=== PATIENT | male | born 1955 | race Caucasian/White ===

== ENCOUNTER 2018-12-19 10:43 | Outpatient (CLI) | payer BC, SELFPAY ==
[2018-12-19 11:06] LABS: Abs Immature Grans 0.02 k/cumm (0.0-0.09); Absolute Basophil Count 0.02 k/cumm (0.0-0.2); Absolute Eosinophil Count 0.04 k/cumm (0.0-0.7); Absolute Monocyte Count 0.74 k/cumm (0.11-0.7); Absolute Neutrophil Count 3.81 k/cumm (1.2-6.7); Basophils % 0.3; Eosinophils % 0.7; HCT 42.9 % (40.0-50.0); HGB 14.2 g/dL (13.5-17.5); Immature Grans % 0.3; Lymphocytes % 19.2; Mean Corp. HGB Concentration 33.1 g/dL (32.0-36.0); Mean Corpuscular Hemoglobin 29.3 pg (27.0-33.0); Mean Corpuscular Volume 88.5 fL (80-95); Mean Platelet Volume 9.1 fL (8.0-11.0); Monocytes % 12.9; Neutrophils % 66.6; Platelet Count 239 x1000/uL (130-400); RBC 4.85 m/cumm (4.50-6.00); RBC Distribution Width 13.8 % (11.8-14.1); White Blood Cell Count 5.73 k/cumm (4.4-10.8)
[2018-12-19 11:26] LABS: ALT 32 U/L (12-78); AST 16 U/L (15-37); Albumin 3.9 g/dL (3.4-5.0); Alkaline Phosphatase 94 U/L (46-116); Anion Gap 9.5 mmol/L (3-11); BUN 25 mg/dL (7-18); Bilirubin, Total 0.4 mg/dL (0.2-1.0); CO2 27.5 mmol/L (21.0-32.0); CREATININE 1.08 mg/dL (0.70-1.30); Calcium 9.7 mg/dL (8.5-10.1); Chloride 103 mmol/L (98-107); Glucose 104 mg/dL (70-100); Potassium 4.1 mmol/L (3.5-5.1); Sodium 140 mmol/L (136-145); Total Protein 7.7 g/dL (6.4-8.2)
[2018-12-20 11:30] LABS: IgA 141 mg/dL (85-499); IgG 1128 mg/dL (610-1616); IgM 118 mg/dL (35-242); Kappa Free Light Chain 53.48 mg/dl (0.33-1.94); Lambda Free Light Chain 1.21 mg/dl (0.57-2.63)
[2018-12-20 13:42] LABS: Albumin 58.3 % (55.8-66.1); Total Protein 6.9 g/dl (6.3-8.2)
== END 2018-12-19 11:03 ==
PROVIDERS: PCP Internal Medicine; Visit Provider Internal Medicine Hematology & Oncology
DX: C90.30 Solitary plasmacytoma not having achieved remission (principal)
CPT/HCPCS: 36415; 80053; 82784; 83883; 84165; 85025

== ENCOUNTER 2019-03-20 09:15 | Outpatient (CLI) | payer BC, SELFPAY ==
[2019-03-20 09:59] LABS: Abs Immature Grans 0.03 k/cumm (0.0-0.09); Absolute Basophil Count 0.02 k/cumm (0.0-0.2); Absolute Eosinophil Count 0.03 k/cumm (0.0-0.7); Absolute Lymphocyte Count 1.09 k/cumm (1.2-3.4); Absolute Monocyte Count 0.91 k/cumm (0.11-0.7); Absolute Neutrophil Count 4.42 k/cumm (1.2-6.7); Basophils % 0.3; Eosinophils % 0.5; HCT 41.1 % (40.0-50.0); HGB 13.6 g/dL (13.5-17.5); Immature Grans % 0.5; Lymphocytes % 16.8; Mean Corp. HGB Concentration 33.1 g/dL (32.0-36.0); Mean Corpuscular Hemoglobin 29.6 pg (27.0-33.0); Mean Corpuscular Volume 89.5 fL (80-95); Mean Platelet Volume 8.8 fL (8.0-11.0); Neutrophils % 67.9; Platelet Count 288 x1000/uL (130-400); RBC 4.59 m/cumm (4.50-6.00); RBC Distribution Width 13.9 % (11.8-14.1)
[2019-03-20 10:11] LABS: ALT 30 U/L (16-63); AST 17 U/L (15-37); Alkaline Phosphatase 141 U/L (46-116); Anion Gap 8.7 mmol/L (3-11); BUN 25 mg/dL (7-18); Bilirubin, Total 0.5 mg/dL (0.2-1.0); CO2 30.3 mmol/L (21.0-32.0); CREATININE 1.34 mg/dL (0.70-1.30); Calcium 10.2 mg/dL (8.5-10.1); Chloride 104 mmol/L (98-107); Glucose 112 mg/dL (70-100); Potassium 4.1 mmol/L (3.5-5.1); Sodium 143 mmol/L (136-145)
[2019-03-21 10:17] LABS: IgA 134 mg/dL (85-499); IgG 1074 mg/dL (610-1616); IgM 97 mg/dL (35-242); Kappa Free Light Chain 192.01 mg/dl (0.33-1.94); Lambda Free Light Chain 1.25 mg/dl (0.57-2.63)
[2019-03-21 13:42] LABS: Albumin 58.7 % (55.8-66.1); Total Protein 7.4 g/dl (6.3-8.2)
== END 2019-03-20 09:35 ==
PROVIDERS: PCP Internal Medicine; Visit Provider Internal Medicine Hematology & Oncology
DX: C90.30 Solitary plasmacytoma not having achieved remission (principal)
CPT/HCPCS: 36415; 80053; 82784; 83883; 84165; 85025

== ENCOUNTER 2019-04-15 12:15 | Outpatient (CLI) | payer BC, SELFPAY ==
[2019-04-15 12:41] LABS: Abs Immature Grans 0.15 k/cumm (0.0-0.09); Absolute Basophil Count 0.01 k/cumm (0.0-0.2); Absolute Lymphocyte Count 1.31 k/cumm (1.2-3.4); Absolute Monocyte Count 1.81 k/cumm (0.11-0.7); Basophils % 0.1; HCT 39.4 % (40.0-50.0); Immature Grans % 1.3; Lymphocytes % 11.4; Mean Corpuscular Hemoglobin 29.5 pg (27.0-33.0); Mean Corpuscular Volume 89.3 fL (80-95); Mean Platelet Volume 9.1 fL (8.0-11.0); Monocytes % 15.7; Neutrophils % 71.5; Platelet Count 299 x1000/uL (130-400); RBC 4.41 m/cumm (4.50-6.00); RBC Distribution Width 14.1 % (11.8-14.1); White Blood Cell Count 11.53 k/cumm (4.4-10.8)
[2019-04-15 12:46] LABS: Absolute Neutrophil Count 8.24 k/cumm (1.2-6.7)
[2019-04-15 12:54] LABS: ALT 73 U/L (16-63); AST 24 U/L (15-37); Albumin 3.7 g/dL (3.4-5.0); Alkaline Phosphatase 112 U/L (46-116); Anion Gap 10.3 mmol/L (3-11); BUN 29 mg/dL (7-18); Bilirubin, Total 0.4 mg/dL (0.2-1.0); CO2 26.7 mmol/L (21.0-32.0); CREATININE 1.49 mg/dL (0.70-1.30); Calcium 8.3 mg/dL (8.5-10.1); Chloride 106 mmol/L (98-107); Estimated GFR 47.33 (mL/min/1.73m2); Glucose 97 mg/dL (70-100); Potassium 3.7 mmol/L (3.5-5.1); Sodium 143 mmol/L (136-145); Total Protein 7.2 g/dL (6.4-8.2)
[2019-04-15 12:58] LABS: Diff Comment Diff Reviewed; RBC Morphology Normal
[2019-04-16 11:46] LABS: IgA 107 mg/dL (85-499); IgG 953 mg/dL (610-1,616); IgM 78 mg/dL (35-242); Kappa Free Light Chain 136.06 mg/dL (0.33-1.94); Lambda Free Light Chain 0.65 mg/dL (0.57-2.63)
[2019-04-23 09:33] LABS: Albumin 60.3 % (55.8-66.1); Total Protein 6.7 g/dL (6.3-8.2)
[2019-04-23 09:40] LABS: Comment See Comments
== END 2019-04-15 12:35 ==
PROVIDERS: PCP Internal Medicine; Visit Provider Internal Medicine Hematology & Oncology
DX: C90.30 Solitary plasmacytoma not having achieved remission (principal)
CPT/HCPCS: 36415; 80053; 82784; 83883; 84165; 85025

== ENCOUNTER 2019-04-22 12:29 | Outpatient (CLI) | payer BC, SELFPAY ==
[2019-04-22 13:12] LABS: Abs Immature Grans 0.05 k/cumm (0.0-0.09); Absolute Basophil Count 0.01 k/cumm (0.0-0.2); Absolute Lymphocyte Count 0.78 k/cumm (1.2-3.4); Absolute Monocyte Count 0.93 k/cumm (0.11-0.7); Absolute Neutrophil Count 7.27 k/cumm (1.2-6.7); Basophils % 0.1; HCT 38.2 % (40.0-50.0); HGB 12.6 g/dL (13.5-17.5); Immature Grans % 0.6; Lymphocytes % 8.6; Mean Corpuscular Hemoglobin 29.8 pg (27.0-33.0); Mean Corpuscular Volume 90.3 fL (80-95); Mean Platelet Volume 10.4 fL (8.0-11.0); Monocytes % 10.3; Neutrophils % 80.4; RBC 4.23 m/cumm (4.50-6.00); RBC Distribution Width 14.5 % (11.8-14.1); White Blood Cell Count 9.04 k/cumm (4.4-10.8)
[2019-04-22 13:51] LABS: Diff Comment PLT Morph Reviewed; Platelet Count 126 x1000/uL (130-400); RBC Morphology Normal
[2019-04-22 14:25] LABS: ALT 68 U/L (16-63); AST 34 U/L (15-37); Albumin 3.6 g/dL (3.4-5.0); Alkaline Phosphatase 122 U/L (46-116); Anion Gap 8.6 mmol/L (3-11); BUN 22 mg/dL (7-18); Bilirubin, Total 0.4 mg/dL (0.2-1.0); CO2 29.4 mmol/L (21.0-32.0); CREATININE 1.26 mg/dL (0.70-1.30); Calcium 8.8 mg/dL (8.5-10.1); Chloride 103 mmol/L (98-107); Estimated GFR 57.44 (mL/min/1.73m2); Glucose 88 mg/dL (70-100); Potassium 4.5 mmol/L (3.5-5.1); Sodium 141 mmol/L (136-145); Total Protein 6.8 g/dL (6.4-8.2)
[2019-04-23 12:28] LABS: IgA 90 mg/dL (85-499); IgG 767 mg/dL (610-1,616); IgM 62 mg/dL (35-242)
[2019-04-23 13:39] LABS: Kappa Free Light Chain 118.81 mg/dL (0.33-1.94); Lambda Free Light Chain 0.67 mg/dL (0.57-2.63)
[2019-04-23 15:22] LABS: Albumin 57.3 % (55.8-66.1); Total Protein 6.7 g/dL (6.3-8.2)
== END 2019-04-22 12:49 ==
PROVIDERS: PCP Internal Medicine; Visit Provider Internal Medicine Hematology & Oncology
DX: C90.00 Multiple myeloma not having achieved remission (principal); C90.30 Solitary plasmacytoma not having achieved remission
CPT/HCPCS: 36415; 80053; 82784; 83883; 84165; 85025

== ENCOUNTER 2019-05-06 11:42 | Outpatient (CLI) | payer BC, SELFPAY ==
[2019-05-06 12:02] LABS: Abs Immature Grans 0.05 k/cumm (0.0-0.09); Absolute Basophil Count 0.02 k/cumm (0.0-0.2); Absolute Eosinophil Count 0.03 k/cumm (0.0-0.7); Absolute Lymphocyte Count 0.76 k/cumm (1.2-3.4); Absolute Monocyte Count 1.53 k/cumm (0.11-0.7); Absolute Neutrophil Count 4.51 k/cumm (1.2-6.7); Basophils % 0.3; Eosinophils % 0.4; HCT 34.4 % (40.0-50.0); HGB 11.2 g/dL (13.5-17.5); Immature Grans % 0.7; Mean Corp. HGB Concentration 32.6 g/dL (32.0-36.0); Mean Corpuscular Hemoglobin 29.7 pg (27.0-33.0); Mean Corpuscular Volume 91.2 fL (80-95); Mean Platelet Volume 8.1 fL (8.0-11.0); Monocytes % 22.2; Neutrophils % 65.4; RBC 3.77 m/cumm (4.50-6.00); RBC Distribution Width 15.1 % (11.8-14.1)
[2019-05-06 12:13] LABS: Diff Comment Diff Reviewed; Platelet Count 525 x1000/uL (130-400); Polychromasia Present
[2019-05-06 12:16] LABS: ALT 50 U/L (16-63); AST 20 U/L (15-37); Albumin 3.3 g/dL (3.4-5.0); Alkaline Phosphatase 205 U/L (46-116); Anion Gap 8.4 mmol/L (3-11); BUN 18 mg/dL (7-18); Bilirubin, Total 0.4 mg/dL (0.2-1.0); CO2 27.6 mmol/L (21.0-32.0); CREATININE 1.07 mg/dL (0.70-1.30); Calcium 8.8 mg/dL (8.5-10.1); Chloride 103 mmol/L (98-107); Glucose 103 mg/dL (74-106); Potassium 4.3 mmol/L (3.5-5.1); Sodium 139 mmol/L (136-145)
[2019-05-07 10:59] LABS: IgA 98 mg/dL (85-499); IgG 765 mg/dL (610-1,616); IgM 58 mg/dL (35-242); Kappa Free Light Chain 9.81 mg/dL (0.33-1.94); Lambda Free Light Chain 1.25 mg/dL (0.57-2.63)
[2019-05-07 15:51] LABS: Albumin 56.5 % (55.8-66.1); Total Protein 6.4 g/dL (6.3-8.2)
== END 2019-05-06 12:02 ==
PROVIDERS: PCP Internal Medicine; Visit Provider Internal Medicine Hematology & Oncology
DX: C90.30 Solitary plasmacytoma not having achieved remission (principal)
CPT/HCPCS: 36415; 80053; 82784; 83883; 84165; 85025

== ENCOUNTER 2019-05-13 11:50 | Outpatient (CLI) | payer BC, SELFPAY ==
[2019-05-13 12:30] LABS: Abs Immature Grans 0.53 k/cumm (0.0-0.09); HCT 35.2 % (40.0-50.0); HGB 11.6 g/dL (13.5-17.5); Mean Corpuscular Hemoglobin 29.7 pg (27.0-33.0); Mean Corpuscular Volume 90.3 fL (80-95); Mean Platelet Volume 10.9 fL (8.0-11.0); RBC Distribution Width 15.5 % (11.8-14.1)
[2019-05-13 12:42] LABS: ALT 50 U/L (16-63); AST 21 U/L (15-37); Albumin 3.2 g/dL (3.4-5.0); Alkaline Phosphatase 176 U/L (46-116); Anion Gap 6.2 mmol/L (3-11); BUN 17 mg/dL (7-18); Bilirubin, Total 0.4 mg/dL (0.2-1.0); CO2 29.8 mmol/L (21.0-32.0); CREATININE 1.02 mg/dL (0.70-1.30); Calcium 8.9 mg/dL (8.5-10.1); Chloride 102 mmol/L (98-107); Glucose 89 mg/dL (74-106); Potassium 3.7 mmol/L (3.5-5.1); Sodium 138 mmol/L (136-145); Total Protein 6.8 g/dL (6.4-8.2)
[2019-05-13 12:55] LABS: Platelet Count 162 x1000/uL (130-400)
[2019-05-13 12:57] LABS: Absolute Neutrophil Count 7.63 k/cumm (1.2-6.7)
[2019-05-13 12:58] LABS: Absolute Lymphocyte Count 1.27 k/cumm (1.2-3.4); Absolute Monocyte Count 1.06 k/cumm (0.11-0.7); Atypical Lymphocytes % 1
[2019-05-13 12:59] LABS: Absolute Eosinophil Count 0.21 k/cumm (0.0-0.7)
[2019-05-13 13:00] LABS: Diff Comment Manual Differential; RBC Morphology Normal
[2019-05-14 09:56] LABS: IgA 75 mg/dL (85-499); IgG 679 mg/dL (610-1,616); IgM 48 mg/dL (35-242); Kappa Free Light Chain 4.64 mg/dL (0.33-1.94); Lambda Free Light Chain 0.77 mg/dL (0.57-2.63)
[2019-05-14 15:26] LABS: Albumin 56.9 % (55.8-66.1); Total Protein 6.1 g/dL (6.3-8.2)
== END 2019-05-13 12:10 ==
PROVIDERS: PCP Internal Medicine; Visit Provider Internal Medicine Hematology & Oncology
DX: C90.30 Solitary plasmacytoma not having achieved remission (principal)
CPT/HCPCS: 36415; 80053; 82784; 83883; 84165; 85025

== ENCOUNTER 2019-05-23 09:25 | Outpatient (CLI) | payer BC, SELFPAY ==
[2019-05-22 14:13] LABS: HGB 11.1 g/dL (13.5-17.5); Mean Corp. HGB Concentration 32.6 g/dL (32.0-36.0); Mean Corpuscular Hemoglobin 29.5 pg (27.0-33.0); Mean Corpuscular Volume 90.4 fL (80-95); Mean Platelet Volume 11.1 fL (8.0-11.0); RBC 3.76 m/cumm (4.50-6.00); RBC Distribution Width 16.2 % (11.8-14.1); White Blood Cell Count 9.95 k/cumm (4.4-10.8)
[2019-05-22 14:27] LABS: ALT 172 U/L (16-63); AST 67 U/L (15-37); Albumin 3.5 g/dL (3.4-5.0); Alkaline Phosphatase 181 U/L (46-116); Anion Gap 6.9 mmol/L (3-11); BUN 28 mg/dL (7-18); Bilirubin, Total 0.6 mg/dL (0.2-1.0); CO2 27.1 mmol/L (21.0-32.0); CREATININE 0.93 mg/dL (0.70-1.30); Calcium 8.7 mg/dL (8.5-10.1); Chloride 103 mmol/L (98-107); Glucose 89 mg/dL (74-106); Potassium 4.1 mmol/L (3.5-5.1); Sodium 137 mmol/L (136-145); Total Protein 6.7 g/dL (6.4-8.2)
[2019-05-22 14:34] LABS: Absolute Monocyte Count 1.59 k/cumm (0.11-0.7); Absolute Neutrophil Count 7.86 k/cumm (1.2-6.7); Platelet Count 75 x1000/uL (130-400)
[2019-05-22 14:35] LABS: Anisocytosis 1+; Diff Comment Manual Differential; Polychromasia Present
[2019-05-23 11:22] LABS: Kappa Free Light Chain 1.25 mg/dL (0.33-1.94); Lambda Free Light Chain 0.82 mg/dL (0.57-2.63)
[2019-05-23 13:42] LABS: Albumin 63.3 % (55.8-66.1); Total Protein 6.4 g/dL (6.3-8.2)
== END 2019-05-23 09:45 ==
PROVIDERS: PCP Internal Medicine; Visit Provider Internal Medicine Hematology & Oncology
DX: C90.30 Solitary plasmacytoma not having achieved remission (principal)
CPT/HCPCS: 36415; 80053; 83883; 84165; 85025

== ENCOUNTER 2019-05-27 01:28 | Outpatient (CLI) | payer BC, SELFPAY ==
[2019-05-27 11:16] LABS: Abs Immature Grans 0.04 k/cumm (0.0-0.09); Absolute Basophil Count 0.02 k/cumm (0.0-0.2); Absolute Eosinophil Count 0.16 k/cumm (0.0-0.7); Absolute Lymphocyte Count 1.61 k/cumm (1.2-3.4); Absolute Monocyte Count 2.03 k/cumm (0.11-0.7); Absolute Neutrophil Count 3.34 k/cumm (1.2-6.7); Basophils % 0.3; Eosinophils % 2.2; HCT 34.5 % (40.0-50.0); HGB 11.3 g/dL (13.5-17.5); Immature Grans % 0.6; Lymphocytes % 22.4; Mean Corp. HGB Concentration 32.8 g/dL (32.0-36.0); Mean Corpuscular Volume 91.5 fL (80-95); Mean Platelet Volume 8.4 fL (8.0-11.0); Monocytes % 28.2; Neutrophils % 46.3; RBC 3.77 m/cumm (4.50-6.00); RBC Distribution Width 16.4 % (11.8-14.1)
[2019-05-27 11:35] LABS: Diff Comment Diff Reviewed; RBC Morphology Normal
[2019-05-27 11:36] LABS: Platelet Count 286 x1000/uL (130-400)
[2019-05-27 12:14] LABS: ALT 92 U/L (16-63); AST 35 U/L (15-37); Albumin 3.5 g/dL (3.4-5.0); Alkaline Phosphatase 191 U/L (46-116); Anion Gap 6.5 mmol/L (3-11); BUN 27 mg/dL (7-18); Bilirubin, Total 0.6 mg/dL (0.2-1.0); CO2 28.5 mmol/L (21.0-32.0); CREATININE 0.88 mg/dL (0.70-1.30); Calcium 8.8 mg/dL (8.5-10.1); Chloride 103 mmol/L (98-107); Glucose 96 mg/dL (74-106); Potassium 4.2 mmol/L (3.5-5.1); Sodium 138 mmol/L (136-145); Total Protein 6.4 g/dL (6.4-8.2)
[2019-05-28 10:42] LABS: IgA 71 mg/dL (85-499); IgG 717 mg/dL (610-1,616); IgM 87 mg/dL (35-242); Kappa Free Light Chain 2.52 mg/dL (0.33-1.94); Lambda Free Light Chain 1.24 mg/dL (0.57-2.63)
[2019-05-30 14:19] LABS: Albumin 59.7 % (55.8-66.1); Total Protein 6.3 g/dL (6.3-8.2)
== END 2019-05-27 01:48 ==
PROVIDERS: PCP Internal Medicine; Visit Provider Internal Medicine Hematology & Oncology
DX: C90.30 Solitary plasmacytoma not having achieved remission (principal)
CPT/HCPCS: 36415; 80053; 82784; 83883; 84165; 85025

== ENCOUNTER 2019-06-03 10:20 | Outpatient (CLI) | payer BC, SELFPAY ==
[2019-06-03 10:48] LABS: Abs Immature Grans 0.06 k/cumm (0.0-0.09); Absolute Basophil Count 0.01 k/cumm (0.0-0.2); Absolute Eosinophil Count 0.08 k/cumm (0.0-0.7); Absolute Lymphocyte Count 1.09 k/cumm (1.2-3.4); Absolute Monocyte Count 0.74 k/cumm (0.11-0.7); Absolute Neutrophil Count 4.27 k/cumm (1.2-6.7); Basophils % 0.2; Eosinophils % 1.3; HCT 34.4 % (40.0-50.0); HGB 11.2 g/dL (13.5-17.5); Lymphocytes % 17.4; Mean Corp. HGB Concentration 32.6 g/dL (32.0-36.0); Mean Corpuscular Hemoglobin 30.1 pg (27.0-33.0); Mean Corpuscular Volume 92.5 fL (80-95); Mean Platelet Volume 10.2 fL (8.0-11.0); Monocytes % 11.8; Neutrophils % 68.3; Platelet Count 148 x1000/uL (130-400); RBC 3.72 m/cumm (4.50-6.00); RBC Distribution Width 16.6 % (11.8-14.1); White Blood Cell Count 6.25 k/cumm (4.4-10.8)
[2019-06-03 11:00] LABS: ALT 62 U/L (16-63); AST 29 U/L (15-37); Albumin 3.2 g/dL (3.4-5.0); Alkaline Phosphatase 145 U/L (46-116); Anion Gap 8.1 mmol/L (3-11); BUN 17 mg/dL (7-18); Bilirubin, Total 0.5 mg/dL (0.2-1.0); CO2 28.9 mmol/L (21.0-32.0); CREATININE 0.87 mg/dL (0.70-1.30); Calcium 8.7 mg/dL (8.5-10.1); Chloride 105 mmol/L (98-107); Glucose 95 mg/dL (74-106); Potassium 3.9 mmol/L (3.5-5.1); Sodium 142 mmol/L (136-145); Total Protein 6.7 g/dL (6.4-8.2)
[2019-06-04 12:21] LABS: IgA 73 mg/dL (85-499); IgG 676 mg/dL (610-1,616); IgM 91 mg/dL (35-242); Lambda Free Light Chain 1.19 mg/dL (0.57-2.63)
[2019-06-04 15:27] LABS: Albumin 59.9 % (55.8-66.1); Total Protein 6.1 g/dL (6.3-8.2)
== END 2019-06-03 10:40 ==
PROVIDERS: PCP Internal Medicine; Visit Provider Internal Medicine Hematology & Oncology
DX: C90.30 Solitary plasmacytoma not having achieved remission (principal)
CPT/HCPCS: 36415; 80053; 82784; 83883; 84165; 85025

== ENCOUNTER 2019-06-19 13:18 | Outpatient (CLI) | payer BC, SELFPAY ==
[2019-06-19 13:36] LABS: Abs Immature Grans 0.02 k/cumm (0.0-0.09); Absolute Basophil Count 0.01 k/cumm (0.0-0.2); Absolute Eosinophil Count 0.05 k/cumm (0.0-0.7); Absolute Lymphocyte Count 0.85 k/cumm (1.2-3.4); Absolute Monocyte Count 1.59 k/cumm (0.11-0.7); Absolute Neutrophil Count 4.13 k/cumm (1.2-6.7); Basophils % 0.2; Eosinophils % 0.8; HCT 33.9 % (40.0-50.0); Immature Grans % 0.3 %; Lymphocytes % 12.8; Mean Corp. HGB Concentration 32.4 g/dL (32.0-36.0); Mean Corpuscular Hemoglobin 30.6 pg (27.0-33.0); Mean Corpuscular Volume 94.2 fL (80-95); Mean Platelet Volume 8.9 fL (8.0-11.0); Monocytes % 23.9; Platelet Count 327 x1000/uL (130-400); RBC Distribution Width 16.6 % (11.8-14.1); White Blood Cell Count 6.65 k/cumm (4.4-10.8)
[2019-06-19 13:48] LABS: ALT 57 U/L (16-63); AST 30 U/L (15-37); Albumin 3.4 g/dL (3.4-5.0); Alkaline Phosphatase 95 U/L (46-116); Anion Gap 10.7 mmol/L (3-11); BUN 26 mg/dL (7-18); Bilirubin, Total 0.4 mg/dL (0.2-1.0); CO2 26.3 mmol/L (21.0-32.0); CREATININE 0.88 mg/dL (0.70-1.30); Calcium 8.8 mg/dL (8.5-10.1); Chloride 106 mmol/L (98-107); Glucose 95 mg/dL (74-106); Potassium 3.2 mmol/L (3.5-5.1); Sodium 143 mmol/L (136-145); Total Protein 6.6 g/dL (6.4-8.2)
[2019-06-19 13:53] LABS: Diff Comment Agrees w/ Instrument
[2019-06-19 13:54] LABS: Poikilocytes 1+
[2019-06-20 12:26] LABS: IgA 75 mg/dL (85-499); IgG 788 mg/dL (610-1,616); IgM 84 mg/dL (35-242); Kappa Free Light Chain 1.93 mg/dL (0.33-1.94); Lambda Free Light Chain 0.97 mg/dL (0.57-2.63)
[2019-06-20 16:10] LABS: Total Protein 6.1 g/dL (6.3-8.2)
== END 2019-06-19 13:38 ==
PROVIDERS: PCP Internal Medicine; Visit Provider Internal Medicine Hematology & Oncology
DX: C90.30 Solitary plasmacytoma not having achieved remission (principal)
CPT/HCPCS: 36415; 80053; 82784; 83883; 84165; 85025

== ENCOUNTER 2019-08-14 12:24 | Outpatient (CLI) | payer BC, SELFPAY ==
[2019-08-14 12:51] LABS: Abs Immature Grans 0.01 k/cumm (0.0-0.09); Absolute Basophil Count 0.03 k/cumm (0.0-0.2); Absolute Eosinophil Count 0.02 k/cumm (0.0-0.7); Absolute Lymphocyte Count 1.02 k/cumm (1.2-3.4); Absolute Monocyte Count 1.16 k/cumm (0.11-0.7); Absolute Neutrophil Count 3.42 k/cumm (1.2-6.7); Basophils % 0.5; Eosinophils % 0.4; HCT 41.1 % (40.0-50.0); HGB 13.5 g/dL (13.5-17.5); Immature Grans % 0.2 %; Mean Corp. HGB Concentration 32.8 g/dL (32.0-36.0); Mean Corpuscular Hemoglobin 31.1 pg (27.0-33.0); Mean Corpuscular Volume 94.7 fL (80-95); Mean Platelet Volume 8.5 fL (8.0-11.0); Monocytes % 20.5; Neutrophils % 60.4; Platelet Count 326 x1000/uL (130-400); RBC 4.34 m/cumm (4.50-6.00); RBC Distribution Width 14.5 % (11.8-14.1); White Blood Cell Count 5.66 k/cumm (4.4-10.8)
[2019-08-14 13:04] LABS: ALT 26 U/L (16-63); AST 17 U/L (15-37); Albumin 3.7 g/dL (3.4-5.0); Alkaline Phosphatase 75 U/L (46-116); Anion Gap 6.2 mmol/L (3-11); BUN 20 mg/dL (7-18); Bilirubin, Total 0.5 mg/dL (0.2-1.0); CO2 30.8 mmol/L (21.0-32.0); CREATININE 0.95 mg/dL (0.70-1.30); Calcium 9.2 mg/dL (8.5-10.1); Chloride 104 mmol/L (98-107); Glucose 104 mg/dL (74-106); Potassium 4.3 mmol/L (3.5-5.1); Sodium 141 mmol/L (136-145); Total Protein 7.3 g/dL (6.4-8.2)
[2019-08-15 10:10] LABS: IgA 79 mg/dL (85-499); IgG 783 mg/dL (610-1,616); IgM 75 mg/dL (35-242); Kappa Free Light Chain 1.62 mg/dL (0.33-1.94); Lambda Free Light Chain 0.76 mg/dL (0.57-2.63)
[2019-08-15 14:13] LABS: Albumin 60.1 % (55.8-66.1); Total Protein 6.5 g/dL (6.3-8.2)
== END 2019-08-14 12:44 ==
PROVIDERS: PCP Internal Medicine; Visit Provider Internal Medicine Hematology & Oncology
DX: C90.30 Solitary plasmacytoma not having achieved remission (principal)
CPT/HCPCS: 36415; 80053; 82784; 83883; 84165; 85025

== ENCOUNTER 2019-09-11 01:01 | Outpatient (CLI) | payer BC, SELFPAY ==
[2019-09-11 12:45] LABS: Abs Immature Grans 0.01 k/cumm (0.0-0.09); Absolute Basophil Count 0.03 k/cumm (0.0-0.2); Absolute Eosinophil Count 0.03 k/cumm (0.0-0.7); Absolute Lymphocyte Count 1.04 k/cumm (1.2-3.4); Absolute Monocyte Count 0.98 k/cumm (0.11-0.7); Absolute Neutrophil Count 2.93 k/cumm (1.2-6.7); Basophils % 0.6; Eosinophils % 0.6; HCT 39.7 % (40.0-50.0); HGB 13.4 g/dL (13.5-17.5); Immature Grans % 0.2 %; Lymphocytes % 20.7; Mean Corp. HGB Concentration 33.8 g/dL (32.0-36.0); Mean Corpuscular Hemoglobin 31.3 pg (27.0-33.0); Mean Corpuscular Volume 92.8 fL (80-95); Monocytes % 19.5; Neutrophils % 58.4; Platelet Count 236 x1000/uL (130-400); RBC 4.28 m/cumm (4.50-6.00); RBC Distribution Width 14.5 % (11.8-14.1); White Blood Cell Count 5.02 k/cumm (4.4-10.8)
[2019-09-11 12:58] LABS: ALT 26 U/L (16-63); AST 17 U/L (15-37); Albumin 3.9 g/dL (3.4-5.0); Alkaline Phosphatase 64 U/L (46-116); Anion Gap 7.5 mmol/L (3-11); BUN 20 mg/dL (7-18); Bilirubin, Total 0.5 mg/dL (0.2-1.0); CO2 27.5 mmol/L (21.0-32.0); CREATININE 1.03 mg/dL (0.70-1.30); Calcium 9.1 mg/dL (8.5-10.1); Chloride 105 mmol/L (98-107); Glucose 105 mg/dL (74-106); Potassium 3.9 mmol/L (3.5-5.1); Sodium 140 mmol/L (136-145); Total Protein 7.2 g/dL (6.4-8.2)
[2019-09-12 10:32] LABS: IgA 102 mg/dL (85-499); IgG 799 mg/dL (610-1,616); IgM 71 mg/dL (35-242); Kappa Free Light Chain 1.67 mg/dL (0.33-1.94); Lambda Free Light Chain 0.84 mg/dL (0.57-2.63)
[2019-09-13 14:36] LABS: Total Protein 6.7 g/dL (6.3-8.2)
== END 2019-09-11 01:21 ==
PROVIDERS: PCP Internal Medicine; Visit Provider Internal Medicine Hematology & Oncology
DX: C90.30 Solitary plasmacytoma not having achieved remission (principal)
CPT/HCPCS: 36415; 80053; 82784; 83883; 84165; 85025

== ENCOUNTER 2019-11-13 14:15 | Outpatient (RCR) | payer BC, SELFPAY ==
[2019-11-13] MEDS: Normal Saline Flush 10 ML SYR IVP (15:23)
[2019-11-13 15:37] LABS: Absolute Basophil Count 0.03 k/cumm (0.0-0.2); Absolute Eosinophil Count 0.06 k/cumm (0.0-0.7); Absolute Lymphocyte Count 1.09 k/cumm (1.2-3.4); Absolute Monocyte Count 0.59 k/cumm (0.11-0.7); Absolute Neutrophil Count 3.29 k/cumm (1.2-6.7); Basophils % 0.6; Eosinophils % 1.2; HCT 36.7 % (40.0-50.0); HGB 12.3 g/dL (13.5-17.5); Lymphocytes % 21.5; Mean Corp. HGB Concentration 33.5 g/dL (32.0-36.0); Mean Corpuscular Hemoglobin 31.1 pg (27.0-33.0); Mean Corpuscular Volume 92.9 fL (80-95); Monocytes % 11.7; Platelet Count 226 x1000/uL (130-400); RBC 3.95 m/cumm (4.50-6.00); RBC Distribution Width 14.4 % (11.8-14.1); White Blood Cell Count 5.06 k/cumm (4.4-10.8)
[2019-11-13 15:48] LABS: ALT 28 U/L (16-63); AST 18 U/L (15-37); Albumin 3.7 g/dL (3.4-5.0); Alkaline Phosphatase 60 U/L (46-116); BUN 16 mg/dL (7-18); Bilirubin, Total 0.6 mg/dL (0.2-1.0); CREATININE 0.96 mg/dL (0.70-1.30); Chloride 106 mmol/L (98-107); Glucose 103 mg/dL (74-106); Potassium 3.8 mmol/L (3.5-5.1); Sodium 141 mmol/L (136-145); Total Protein 7.2 g/dL (6.4-8.2)
[2019-11-14 10:33] LABS: Kappa Free Light Chain 2.49 mg/dL (0.33-1.94); Lambda Free Light Chain 1.08 mg/dL (0.57-2.63)
[2019-11-14 10:43] LABS: IgA 121 mg/dL (85-499); IgG 1093 mg/dL (610-1,616); IgM 58 mg/dL (35-242)
[2019-11-14 13:41] LABS: Total Protein 6.8 g/dL (6.3-8.2)
== END 2019-12-03 23:59 | disposition home or self-care (01) ==
LOC: INF 14:15
PROVIDERS: PCP Internal Medicine; Visit Provider Internal Medicine
DX: C90.30 Solitary plasmacytoma not having achieved remission (principal)
CPT/HCPCS: 36415; 80053; 82784; 83883; 84165; 85025

== ENCOUNTER 2019-12-11 02:18 | Outpatient (RCR) | payer BC, SELFPAY | END 2020-01-03 23:59 | disposition home or self-care (01) | LOC: INF 02:18 | PROVIDERS: PCP Internal Medicine; Visit Provider Internal Medicine | DX: R69 Illness, unspecified (principal) ==

== ENCOUNTER 2019-12-11 03:00 | Outpatient (CLI) | payer BC, SELFPAY ==
[2019-12-11 12:33] LABS: Absolute Basophil Count 0.02 k/cumm (0.0-0.2); Absolute Lymphocyte Count 1.06 k/cumm (1.2-3.4); Absolute Monocyte Count 0.62 k/cumm (0.11-0.7); Basophils % 0.5; Eosinophils % 2.3; HCT 39.4 % (40.0-50.0); HGB 12.9 g/dL (13.5-17.5); Lymphocytes % 24.4; Mean Corp. HGB Concentration 32.7 g/dL (32.0-36.0); Mean Corpuscular Hemoglobin 30.7 pg (27.0-33.0); Mean Corpuscular Volume 93.8 fL (80-95); Mean Platelet Volume 9.4 fL (8.0-11.0); Monocytes % 14.3; Neutrophils % 58.5; Platelet Count 219 x1000/uL (130-400); RBC Distribution Width 14.5 % (11.8-14.1); White Blood Cell Count 4.35 k/cumm (4.4-10.8)
[2019-12-11 12:36] LABS: Absolute Neutrophil Count 2.54 k/cumm (1.2-6.7)
[2019-12-11 12:54] LABS: ALT 23 U/L (16-63); AST 20 U/L (15-37); Albumin 3.6 g/dL (3.4-5.0); Alkaline Phosphatase 62 U/L (46-116); BUN 19 mg/dL (7-18); Bilirubin, Total 0.5 mg/dL (0.2-1.0); CREATININE 1.03 mg/dL (0.70-1.30); Calcium 9.1 mg/dL (8.5-10.1); Chloride 103 mmol/L (98-107); Glucose 101 mg/dL (74-106); Potassium 3.8 mmol/L (3.5-5.1); Sodium 139 mmol/L (136-145); Total Protein 7.3 g/dL (6.4-8.2)
[2019-12-12 09:40] LABS: IgA 150 mg/dL (85-499); IgG 1192 mg/dL (610-1,616); IgM 64 mg/dL (35-242); Kappa Free Light Chain 2.92 mg/dL (0.33-1.94); Lambda Free Light Chain 1.19 mg/dL (0.57-2.63)
[2019-12-12 12:02] LABS: Albumin 56.7 % (55.8-66.1); Total Protein 6.9 g/dL (6.3-8.2)
== END 2019-12-11 03:20 ==
PROVIDERS: PCP Internal Medicine; Visit Provider Internal Medicine Hematology & Oncology
DX: C90.30 Solitary plasmacytoma not having achieved remission (principal)
CPT/HCPCS: 36415; 80053; 82784; 83883; 84165; 85025

== ENCOUNTER 2020-01-08 03:39 | Outpatient (CLI) | payer BC, SELFPAY ==
[2020-01-08 12:59] LABS: Abs Immature Grans 0.01 10^3/uL (0.0-0.06); Absolute Basophil Count 0.03 10^3/uL (0.0-0.2); Absolute Eosinophil Count 0.05 10^3/uL (0.0-0.7); Absolute Monocyte Count 0.48 10^3/uL (0.1-0.8); Absolute Neutrophil Count 2.57 10^3/uL (1.2-6.7); Basophils % 0.8; Eosinophils % 1.3; HCT 39.4 % (40.0-50.0); HGB 12.5 g/dL (13.5-17.5); Immature Grans % 0.3; Lymphocytes % 20.3; MCH 29.8 pg (27.0-33.0); MCHC 31.7 % (32.0-36.0); MPV 9.3 fL (8.0-11.0); Monocytes % 12.2; Neutrophils % 65.1; Nucleated RBC 0 %; Platelet Count 174 10^3/uL (130-400); RBC 4.19 10^6/uL (4.36-5.78); RDW 13.8 % (11.8-14.1); RDW-SD 47.6 fL; WBC 3.95 10^3/uL (4.4-10.8)
[2020-01-08 13:15] LABS: ALT 21 U/L (16-63); AST 16 U/L (15-37); Albumin 3.5 g/dL (3.4-5.0); Alkaline Phosphatase 62 U/L (46-116); Anion Gap 4.9 mmol/L (3-11); BUN 20 mg/dL (7-18); Bilirubin, Total 0.5 mg/dL (0.2-1.0); CO2 29.1 mmol/L (21.0-32.0); Calcium 8.9 mg/dL (8.5-10.1); Chloride 103 mmol/L (98-107); Glucose 93 mg/dL (74-106); Potassium 3.9 mmol/L (3.5-5.1); Sodium 137 mmol/L (136-145); Total Protein 7.2 g/dL (6.4-8.2)
[2020-01-09 11:26] LABS: IgA 152 mg/dL (85-499); IgG 1246 mg/dL (610-1,616); IgM 58 mg/dL (35-242); Kappa Free Light Chain 2.83 mg/dL (0.33-1.94); Lambda Free Light Chain 1.16 mg/dL (0.57-2.63)
[2020-01-09 13:09] LABS: Albumin 58.9 % (55.8-66.1); Total Protein 6.8 g/dL (6.3-8.2)
== END 2020-01-08 03:59 ==
PROVIDERS: PCP Internal Medicine; Visit Provider Internal Medicine Hematology & Oncology
DX: C90.30 Solitary plasmacytoma not having achieved remission (principal)
CPT/HCPCS: 36415; 80053; 82784; 83883; 84165; 85025

== ENCOUNTER 2020-02-26 02:49 | Outpatient (CLI) | payer BC, SELFPAY ==
[2020-02-26 13:58] LABS: Absolute Basophil Count 0.04 10^3/uL (0.0-0.2); Absolute Eosinophil Count 0.04 10^3/uL (0.0-0.7); Absolute Monocyte Count 0.98 10^3/uL (0.1-0.8); Absolute Neutrophil Count 2.69 10^3/uL (1.2-6.7); Basophils % 0.9; Eosinophils % 0.9; HCT 38.1 % (40.0-50.0); HGB 12.4 g/dL (13.5-17.5); Lymphocytes % 19.4; MCH 30.1 pg (27.0-33.0); MCHC 32.5 % (32.0-36.0); MCV 92.5 fL (80-95); MPV 8.7 fL (8.0-11.0); Monocytes % 21.1; Neutrophils % 57.7; Nucleated RBC 0 %; Platelet Count 176 10^3/uL (130-400); RBC 4.12 10^6/uL (4.36-5.78); RDW 14.2 % (11.8-14.1); RDW-SD 47.8 fL; WBC 4.65 10^3/uL (4.4-10.8)
[2020-02-26 14:11] LABS: ALT 20 U/L (16-63); AST 19 U/L (15-37); Albumin 3.4 g/dL (3.4-5.0); Alkaline Phosphatase 54 U/L (46-116); Anion Gap 6.4 mmol/L (3-11); BUN 25 mg/dL (7-18); Bilirubin, Total 0.4 mg/dL (0.2-1.0); CO2 26.6 mmol/L (21.0-32.0); CREATININE 1.17 mg/dL (0.70-1.30); Calcium 8.9 mg/dL (8.5-10.1); Chloride 107 mmol/L (98-107); Glucose 80 mg/dL (74-106); Potassium 3.8 mmol/L (3.5-5.1); Sodium 140 mmol/L (136-145); Total Protein 7.1 g/dL (6.4-8.2)
[2020-02-27 09:40] LABS: IgA 160 mg/dL (85-499); IgG 1259 mg/dL (610-1,616); IgM 59 mg/dL (35-242); Kappa Free Light Chain 2.48 mg/dL (0.33-1.94); Lambda Free Light Chain 1.07 mg/dL (0.57-2.63)
[2020-02-27 12:59] LABS: Albumin 56.7 % (55.8-66.1); Total Protein 6.6 g/dL (6.3-8.2)
== END 2020-02-26 03:09 ==
PROVIDERS: PCP Internal Medicine; Visit Provider Internal Medicine Hematology & Oncology
DX: C90.30 Solitary plasmacytoma not having achieved remission (principal)
CPT/HCPCS: 36415; 80053; 82784; 83883; 84165; 85025

== ENCOUNTER 2020-03-25 02:56 | Outpatient (CLI) | payer BC, SELFPAY ==
[2020-03-25 12:38] LABS: Abs Immature Grans 0.01 10^3/uL (0.0-0.06); Absolute Basophil Count 0.05 10^3/uL (0.0-0.2); Absolute Eosinophil Count 0.04 10^3/uL (0.0-0.7); Absolute Lymphocyte Count 1.14 10^3/uL (1.2-3.4); Absolute Monocyte Count 0.96 10^3/uL (0.1-0.8); Absolute Neutrophil Count 2.12 10^3/uL (1.2-6.7); Basophils % 1.2; Eosinophils % 0.9; HGB 12.2 g/dL (13.5-17.5); Immature Grans % 0.2; Lymphocytes % 26.4; MCH 29.7 pg (27.0-33.0); MCHC 32.1 % (32.0-36.0); MCV 92.5 fL (80-95); Monocytes % 22.2; Neutrophils % 49.1; Nucleated RBC 0 %; Platelet Count 193 10^3/uL (130-400); RBC 4.11 10^6/uL (4.36-5.78); RDW 14.4 % (11.8-14.1); RDW-SD 48.5 fL; WBC 4.32 10^3/uL (4.4-10.8)
[2020-03-25 12:51] LABS: ALT 21 U/L (16-63); AST 16 U/L (15-37); Albumin 3.5 g/dL (3.4-5.0); Alkaline Phosphatase 63 U/L (46-116); Anion Gap 2.9 mmol/L (3-11); BUN 21 mg/dL (7-18); Bilirubin, Total 0.5 mg/dL (0.2-1.0); CO2 30.1 mmol/L (21.0-32.0); CREATININE 1.04 mg/dL (0.70-1.30); Chloride 104 mmol/L (98-107); Glucose 101 mg/dL (74-106); Potassium 4.2 mmol/L (3.5-5.1); Sodium 137 mmol/L (136-145); Total Protein 7.2 g/dL (6.4-8.2)
[2020-03-26 10:58] LABS: IgA 162 mg/dL (85-499); IgG 1322 mg/dL (610-1,616); IgM 59 mg/dL (35-242); Kappa Free Light Chain 2.79 mg/dL (0.33-1.94); Lambda Free Light Chain 0.99 mg/dL (0.57-2.63)
[2020-03-26 15:24] LABS: Albumin 55.7 % (55.8-66.1); Total Protein 6.6 g/dL (6.3-8.2)
== END 2020-03-25 03:16 ==
PROVIDERS: PCP Internal Medicine; Visit Provider Internal Medicine Hematology & Oncology
DX: C90.30 Solitary plasmacytoma not having achieved remission (principal)
CPT/HCPCS: 36415; 80053; 82784; 83883; 84165; 85025

== ENCOUNTER 2020-04-24 02:03 | Outpatient (CLI) | payer BC, SELFPAY ==
[2020-04-24 12:34] LABS: Abs Immature Grans 0.01 10^3/uL (0.0-0.06); Absolute Basophil Count 0.06 10^3/uL (0.0-0.2); Absolute Eosinophil Count 0.09 10^3/uL (0.0-0.7); Absolute Lymphocyte Count 1.05 10^3/uL (1.2-3.4); Absolute Monocyte Count 1.03 10^3/uL (0.1-0.8); Absolute Neutrophil Count 2.41 10^3/uL (1.2-6.7); Basophils % 1.3; Eosinophils % 1.9; HCT 38.1 % (40.0-50.0); HGB 12.1 g/dL (13.5-17.5); Immature Grans % 0.2; Lymphocytes % 22.6; MCH 29.2 pg (27.0-33.0); MCHC 31.8 % (32.0-36.0); MCV 91.8 fL (80-95); MPV 8.8 fL (8.0-11.0); Monocytes % 22.2; Neutrophils % 51.8; Nucleated RBC 0 %; Platelet Count 228 10^3/uL (130-400); RBC 4.15 10^6/uL (4.36-5.78); RDW 14.6 % (11.8-14.1); RDW-SD 49.1 fL; WBC 4.65 10^3/uL (4.4-10.8)
[2020-04-24 12:51] LABS: ALT 17 U/L (16-63); AST 16 U/L (15-37); Albumin 3.5 g/dL (3.4-5.0); Alkaline Phosphatase 79 U/L (46-116); Anion Gap 0.7 mmol/L (3-11); BUN 20 mg/dL (7-18); Bilirubin, Total 0.4 mg/dL (0.2-1.0); CO2 32.3 mmol/L (21.0-32.0); CREATININE 1.05 mg/dL (0.70-1.30); Chloride 104 mmol/L (98-107); Glucose 76 mg/dL (74-106); Potassium 3.8 mmol/L (3.5-5.1); Sodium 137 mmol/L (136-145); Total Protein 7.4 g/dL (6.4-8.2)
[2020-04-29 12:46] LABS: IgG 1410 mg/dL (767-1590)
[2020-04-29 12:54] LABS: IgA 197 mg/dL (61-356); IgM 60 mg/dL (37-286); Kappa Free Light Chain 3.23 mg/dL (0.3300-1.94)
[2020-04-29 12:55] LABS: Albumin 3.3 g/dL (3.4-4.7); Total Protein 6.6 g/dL (6.3-7.9)
[2020-04-29 12:56] LABS: Comment See Comments
== END 2020-04-24 02:23 ==
PROVIDERS: PCP Internal Medicine; Visit Provider Internal Medicine Hematology & Oncology
DX: C90.30 Solitary plasmacytoma not having achieved remission (principal)
CPT/HCPCS: 36415; 80053; 82784; 83883; 84165; 85025

== ENCOUNTER 2020-05-20 01:18 | Outpatient (CLI) | payer BC, SELFPAY ==
[2020-05-20 12:43] LABS: Absolute Basophil Count 0.05 10^3/uL (0.0-0.2); Absolute Eosinophil Count 0.02 10^3/uL (0.0-0.7); Absolute Lymphocyte Count 1.16 10^3/uL (1.2-3.4); Absolute Monocyte Count 0.75 10^3/uL (0.1-0.8); Absolute Neutrophil Count 1.94 10^3/uL (1.2-6.7); Basophils % 1.3; Eosinophils % 0.5; HCT 38.5 % (40.0-50.0); HGB 12.5 g/dL (13.5-17.5); Lymphocytes % 29.6; MCH 29.7 pg (27.0-33.0); MCHC 32.5 % (32.0-36.0); MCV 91.4 fL (80-95); MPV 8.8 fL (8.0-11.0); Monocytes % 19.1; Neutrophils % 49.5; Nucleated RBC 0 %; Platelet Count 208 10^3/uL (130-400); RBC 4.21 10^6/uL (4.36-5.78); RDW 14.8 % (11.8-14.1); RDW-SD 49.9 fL; WBC 3.92 10^3/uL (4.4-10.8)
[2020-05-20 12:54] LABS: ALT 16 U/L (16-63); AST 16 U/L (15-37); Albumin 3.6 g/dL (3.4-5.0); Alkaline Phosphatase 76 U/L (46-116); Anion Gap 4.2 mmol/L (3-11); BUN 21 mg/dL (7-18); Bilirubin, Total 0.5 mg/dL (0.2-1.0); CO2 29.8 mmol/L (21.0-32.0); CREATININE 1.07 mg/dL (0.70-1.30); Calcium 8.6 mg/dL (8.5-10.1); Chloride 104 mmol/L (98-107); Glucose 85 mg/dL (74-106); Potassium 3.6 mmol/L (3.5-5.1); Sodium 138 mmol/L (136-145); Total Protein 7.6 g/dL (6.4-8.2)
[2020-05-21 09:29] LABS: IgA 183 mg/dL (85-499); IgG 1310 mg/dL (610-1,616); IgM 59 mg/dL (35-242); Kappa Free Light Chain 3.93 mg/dL (0.33-1.94); Lambda Free Light Chain 1.44 mg/dL (0.57-2.63)
[2020-05-21 14:06] LABS: Albumin 54.6 % (55.8-66.1); Total Protein 7.1 g/dL (6.3-8.2)
== END 2020-05-20 01:38 ==
PROVIDERS: PCP Internal Medicine; Visit Provider Internal Medicine Hematology & Oncology
DX: C90.30 Solitary plasmacytoma not having achieved remission (principal)
CPT/HCPCS: 80053; 82784; 83883; 84165; 85025

== ENCOUNTER 2020-06-17 04:34 | Outpatient (CLI) | payer BC, SELFPAY ==
[2020-06-17 11:25] LABS: Abs Immature Grans 0.01 10^3/uL (0.0-0.06); Absolute Basophil Count 0.06 10^3/uL (0.0-0.2); Absolute Eosinophil Count 0.09 10^3/uL (0.0-0.7); Absolute Lymphocyte Count 1.12 10^3/uL (1.2-3.4); Absolute Neutrophil Count 2.07 10^3/uL (1.2-6.7); Basophils % 1.5; Eosinophils % 2.2; HCT 39.7 % (40.0-50.0); HGB 12.8 g/dL (13.5-17.5); Immature Grans % 0.2; Lymphocytes % 27.7; MCH 29.6 pg (27.0-33.0); MCHC 32.2 % (32.0-36.0); MCV 91.7 fL (80-95); MPV 8.8 fL (8.0-11.0); Monocytes % 17.3; Neutrophils % 51.1; Nucleated RBC 0 %; Platelet Count 194 10^3/uL (130-400); RBC 4.33 10^6/uL (4.36-5.78); RDW 14.8 % (11.8-14.1); RDW-SD 50.2 fL; WBC 4.05 10^3/uL (4.4-10.8)
[2020-06-17 11:43] LABS: ALT 24 U/L (16-63); AST 18 U/L (15-37); Albumin 3.7 g/dL (3.4-5.0); Alkaline Phosphatase 68 U/L (46-116); Anion Gap 6.2 mmol/L (3-11); BUN 24 mg/dL (7-18); Bilirubin, Total 0.4 mg/dL (0.2-1.0); CO2 29.8 mmol/L (21.0-32.0); CREATININE 1.11 mg/dL (0.70-1.30); Calcium 9.1 mg/dL (8.5-10.1); Chloride 104 mmol/L (98-107); Glucose 101 mg/dL (74-106); Potassium 4.2 mmol/L (3.5-5.1); Sodium 140 mmol/L (136-145); Total Protein 7.8 g/dL (6.4-8.2)
[2020-06-18 10:43] LABS: IgA 184 mg/dL (85-499); IgG 1394 mg/dL (610-1,616); IgM 56 mg/dL (35-242); Kappa Free Light Chain 6.07 mg/dL (0.33-1.94); Lambda Free Light Chain 1.37 mg/dL (0.57-2.63)
[2020-06-18 14:24] LABS: Albumin 55.5 % (55.8-66.1); Total Protein 7.5 g/dL (6.3-8.2)
== END 2020-06-17 04:54 ==
PROVIDERS: PCP Internal Medicine; Visit Provider Internal Medicine Hematology & Oncology
DX: C90.30 Solitary plasmacytoma not having achieved remission (principal)
CPT/HCPCS: 36415; 80053; 82784; 83883; 84165; 85025

== ENCOUNTER 2020-07-15 02:55 | Outpatient (CLI) | payer BC, SELFPAY ==
[2020-07-15 12:16] LABS: Abs Immature Grans 0.01 10^3/uL (0.0-0.06); Absolute Basophil Count 0.05 10^3/uL (0.0-0.2); Absolute Eosinophil Count 0.03 10^3/uL (0.0-0.7); Absolute Lymphocyte Count 1.37 10^3/uL (1.2-3.4); Absolute Neutrophil Count 2.42 10^3/uL (1.2-6.7); Eosinophils % 0.6; HCT 40.7 % (40.0-50.0); HGB 13.1 g/dL (13.5-17.5); Immature Grans % 0.2; Lymphocytes % 28.7; MCHC 32.2 % (32.0-36.0); MCV 93.1 fL (80-95); MPV 8.9 fL (8.0-11.0); Monocytes % 18.8; Neutrophils % 50.7; Nucleated RBC 0 %; Platelet Count 197 10^3/uL (130-400); RBC 4.37 10^6/uL (4.36-5.78); RDW 14.6 % (11.8-14.1); WBC 4.78 10^3/uL (4.4-10.8)
[2020-07-15 12:33] LABS: ALT 25 U/L (16-63); AST 18 U/L (15-37); Albumin 3.8 g/dL (3.4-5.0); Alkaline Phosphatase 76 U/L (46-116); BUN 24 mg/dL (7-18); Bilirubin, Total 0.3 mg/dL (0.2-1.0); CREATININE 1.1 mg/dL (0.70-1.30); Chloride 106 mmol/L (98-107); Glucose 105 mg/dL (74-106); Potassium 4.3 mmol/L (3.5-5.1); Sodium 141 mmol/L (136-145); Total Protein 7.8 g/dL (6.4-8.2)
[2020-07-16 09:49] LABS: IgA 194 mg/dL (85-499); IgG 1392 mg/dL (610-1,616); IgM 55 mg/dL (35-242); Kappa Free Light Chain 8.45 mg/dL (0.33-1.94); Lambda Free Light Chain 1.32 mg/dL (0.57-2.63)
== END 2020-07-15 02:56 | disposition home or self-care (01) ==
LOC: LBO 02:55
PROVIDERS: PCP Internal Medicine; Visit Provider Internal Medicine Hematology & Oncology
DX: C90.30 Solitary plasmacytoma not having achieved remission (principal)
CPT/HCPCS: 36415; 80053; 82784; 83883; 85025

== ENCOUNTER 2020-08-12 03:49 | Outpatient (CLI) | payer BC, SELFPAY ==
[2020-08-12 11:41] LABS: Absolute Basophil Count 0.05 10^3/uL (0.0-0.2); Absolute Eosinophil Count 0.01 10^3/uL (0.0-0.7); Absolute Lymphocyte Count 1.12 10^3/uL (1.2-3.4); Absolute Monocyte Count 0.75 10^3/uL (0.1-0.8); Basophils % 1.3; Eosinophils % 0.3; HCT 40.5 % (40.0-50.0); HGB 13.1 g/dL (13.5-17.5); MCH 29.8 pg (27.0-33.0); MCHC 32.3 % (32.0-36.0); MPV 8.5 fL (8.0-11.0); Monocytes % 20.1; Neutrophils % 48.3; Nucleated RBC 0 %; Platelet Count 193 10^3/uL (130-400); RDW 14.6 % (11.8-14.1); RDW-SD 49.2 fL; WBC 3.73 10^3/uL (4.4-10.8)
[2020-08-12 11:56] LABS: ALT 25 U/L (16-63); AST 16 U/L (15-37); Albumin 3.6 g/dL (3.4-5.0); Alkaline Phosphatase 60 U/L (46-116); Anion Gap 6.5 mmol/L (3-11); BUN 25 mg/dL (7-18); Bilirubin, Total 0.6 mg/dL (0.2-1.0); CO2 30.5 mmol/L (21.0-32.0); Calcium 8.9 mg/dL (8.5-10.1); Chloride 104 mmol/L (98-107); Glucose 102 mg/dL (74-106); Potassium 4.1 mmol/L (3.5-5.1); Sodium 141 mmol/L (136-145); Total Protein 7.5 g/dL (6.4-8.2)
[2020-08-13 10:40] LABS: IgA 176 mg/dL (85-499); IgG 1290 mg/dL (610-1,616); IgM 53 mg/dL (35-242); Kappa Free Light Chain 13.56 mg/dL (0.33-1.94); Lambda Free Light Chain 1.12 mg/dL (0.57-2.63)
== END 2020-08-12 03:50 | disposition home or self-care (01) ==
LOC: LBO 03:49
PROVIDERS: PCP Internal Medicine; Visit Provider Internal Medicine Hematology & Oncology
DX: C90.30 Solitary plasmacytoma not having achieved remission (principal)
CPT/HCPCS: 36415; 80053; 82784; 83883; 84165; 85025

== ENCOUNTER 2020-09-09 03:29 | Outpatient (CLI) | payer BC, SELFPAY ==
[2020-09-09 16:04] LABS: Abs Immature Grans 0.01 10^3/uL (0.0-0.06); Absolute Basophil Count 0.05 10^3/uL (0.0-0.2); Absolute Eosinophil Count 0.02 10^3/uL (0.0-0.7); Absolute Lymphocyte Count 1.17 10^3/uL (1.2-3.4); Absolute Monocyte Count 0.83 10^3/uL (0.1-0.8); Basophils % 1.4; Eosinophils % 0.5; HCT 38.4 % (40.0-50.0); HGB 12.3 g/dL (13.5-17.5); Immature Grans % 0.3; Lymphocytes % 31.8; MCV 93.7 fL (80-95); MPV 8.9 fL (8.0-11.0); Monocytes % 22.6; Neutrophils % 43.4; Nucleated RBC 0 %; Platelet Count 221 10^3/uL (130-400); RDW 14.7 % (11.8-14.1); RDW-SD 50.8 fL; WBC 3.68 10^3/uL (4.4-10.8)
[2020-09-09 16:52] LABS: ALT 29 U/L (16-63); AST 16 U/L (15-37); Albumin 3.6 g/dL (3.4-5.0); Alkaline Phosphatase 61 U/L (46-116); Anion Gap 4.8 mmol/L (3-11); BUN 23 mg/dL (7-18); Bilirubin, Total 0.3 mg/dL (0.2-1.0); CO2 30.2 mmol/L (21.0-32.0); Calcium 9.5 mg/dL (8.5-10.1); Chloride 106 mmol/L (98-107); Glucose 88 mg/dL (74-106); Sodium 141 mmol/L (136-145); Total Protein 7.3 g/dL (6.4-8.2)
[2020-09-11 09:23] LABS: Lambda Free Light Chain 1.09 mg/dL (0.57-2.63)
[2020-09-11 16:31] LABS: Total Protein 6.8 g/dL (6.3-8.2)
== END 2020-09-09 03:30 | disposition home or self-care (01) ==
LOC: LBO 03:30
PROVIDERS: PCP Internal Medicine; Visit Provider Internal Medicine Hematology & Oncology
DX: C90.00 Multiple myeloma not having achieved remission (principal)
CPT/HCPCS: 80053; 83883; 84165; 85025

== ENCOUNTER 2020-10-07 04:30 | Outpatient (CLI) | payer BC, SELFPAY ==
[2020-10-07 11:19] LABS: Absolute Basophil Count 0.04 10^3/uL (0.0-0.2); Absolute Eosinophil Count 0.01 10^3/uL (0.0-0.7); Absolute Lymphocyte Count 1.03 10^3/uL (1.2-3.4); Absolute Monocyte Count 0.91 10^3/uL (0.1-0.8); Eosinophils % 0.2; HGB 12.3 g/dL (13.5-17.5); Lymphocytes % 25.2; MCH 30.4 pg (27.0-33.0); MCHC 32.4 % (32.0-36.0); MCV 94.1 fL (80-95); MPV 8.8 fL (8.0-11.0); Monocytes % 22.2; Neutrophils % 51.4; Nucleated RBC 0 %; Platelet Count 204 10^3/uL (130-400); RBC 4.04 10^6/uL (4.36-5.78); RDW 14.5 % (11.8-14.1); RDW-SD 50.6 fL; WBC 4.09 10^3/uL (4.4-10.8)
[2020-10-07 11:54] LABS: ALT 22 U/L (16-63); AST 14 U/L (15-37); Albumin 3.6 g/dL (3.4-5.0); Alkaline Phosphatase 67 U/L (46-116); Anion Gap 8.2 mmol/L (3-11); BUN 24 mg/dL (7-18); Bilirubin, Total 0.4 mg/dL (0.2-1.0); CO2 28.8 mmol/L (21.0-32.0); Calcium 9.1 mg/dL (8.5-10.1); Chloride 107 mmol/L (98-107); Glucose 84 mg/dL (74-106); Potassium 3.9 mmol/L (3.5-5.1); Sodium 144 mmol/L (136-145)
[2020-10-08 09:45] LABS: Kappa Free Light Chain 36.22 mg/dL (0.33-1.94)
[2020-10-08 14:39] LABS: Albumin 57.3 % (55.8-66.1); Total Protein 6.8 g/dL (6.3-8.2)
== END 2020-10-07 04:31 | disposition home or self-care (01) ==
LOC: LBO 04:30
PROVIDERS: PCP Internal Medicine; Visit Provider Internal Medicine Hematology & Oncology
DX: C90.00 Multiple myeloma not having achieved remission (principal)
CPT/HCPCS: 36415; 80053; 83883; 84165; 85025

== ENCOUNTER 2020-11-04 03:22 | Outpatient (CLI) | payer BC, SELFPAY ==
[2020-11-04 11:57] LABS: Absolute Basophil Count 0.05 10^3/uL (0.0-0.2); Absolute Eosinophil Count 0.05 10^3/uL (0.0-0.7); Absolute Lymphocyte Count 1.36 10^3/uL (1.2-3.4); Absolute Monocyte Count 0.87 10^3/uL (0.1-0.8); Absolute Neutrophil Count 1.61 10^3/uL (1.2-6.7); Basophils % 1.3; Eosinophils % 1.3; HCT 36.9 % (40.0-50.0); Lymphocytes % 34.5; MCH 30.5 pg (27.0-33.0); MCHC 32.5 % (32.0-36.0); MCV 93.9 fL (80-95); Monocytes % 22.1; Neutrophils % 40.8; Nucleated RBC 0 %; Platelet Count 201 10^3/uL (130-400); RBC 3.93 10^6/uL (4.36-5.78); RDW 14.5 % (11.8-14.1); RDW-SD 50.5 fL; WBC 3.94 10^3/uL (4.4-10.8)
[2020-11-04 12:10] LABS: ALT 25 U/L (16-63); AST 19 U/L (15-37); Albumin 3.7 g/dL (3.4-5.0); Alkaline Phosphatase 79 U/L (46-116); Anion Gap 5.8 mmol/L (3-11); BUN 20 mg/dL (7-18); Bilirubin, Total 0.5 mg/dL (0.2-1.0); CO2 29.2 mmol/L (21.0-32.0); CREATININE 1.1 mg/dL (0.70-1.30); Calcium 9.1 mg/dL (8.5-10.1); Chloride 104 mmol/L (98-107); Glucose 98 mg/dL (74-106); Sodium 139 mmol/L (136-145); Total Protein 7.4 g/dL (6.4-8.2)
[2020-11-05 09:25] LABS: Kappa Free Light Chain 70.72 mg/dL (0.33-1.94); Lambda Free Light Chain 0.88 mg/dL (0.57-2.63)
[2020-11-05 13:53] LABS: Albumin 57.9 % (55.8-66.1); Total Protein 6.7 g/dL (6.3-8.2)
== END 2020-11-04 03:23 | disposition home or self-care (01) ==
PROVIDERS: PCP Internal Medicine; Visit Provider Internal Medicine Hematology & Oncology
DX: C90.00 Multiple myeloma not having achieved remission (principal)
CPT/HCPCS: 36415; 80053; 83883; 84165; 85025

== ENCOUNTER 2020-12-02 12:49 | Outpatient (CLI) | payer BC, SELFPAY ==
--- NOTE | 2020-12-02 | DI.MRI_ITS ---
Exam(s) MR THORACIC SPINE WO/W EXAM: MR THORACIC SPINE WO/W CLINICAL HISTORY: C90.30PLASMACYTOMA,UNSPECIFIED WHETHER REMISSION ACHIEVED. MULTIPLE MYELOMA TECHNIQUE: Multiplanar multisequence MRI of the thoracic spine was performed without intravenous con trast. MR MRI Spine Thoracic w/ + w/o Contrast from 05/01/2018 FINDINGS: OSSEOUS: Field of view of this study is from C3 down to T12. There is fusion hardware T10, T11, T12 and L1. In this patient with a history of myeloma pathologic involvement is as follows... T2 vertebral body is involved with some posterior bulging of the posterior cortex. Also slight loss of height of the superior endplate of this vertebra noted no prominent spinal canal compromise at thi s level. T5 exhibits some focal involvement inferiorly. No involvement of the posterior cortex. No canal com promise at this level. T8 exhibits a vertebra plana collapse and significant posterior bulging which flattens the thecal sac and contacts the right side of the thoracic cord at this level. Also affects the exiting right neur al foramen. T9 exhibits wedge compression fracture. Pathologic tissue is mostly confined to the anterior aspect without post without prominent posterior cortex bulging. T10 exhibits normal height but significant signal abnormality implying involvement of the vertebral b [place]. There is posterior bulging of the cortex approximately 6 millimeters with indentation of the th ecal sac at this level, more so right than left. Bilateral intrapedicular screws are noted at this level. T11 also exhibits bilateral intrapedicular screws. T11 vertebral artery body exhibits involvement of but no height loss and no posterior cortical bulging. T12 exhibits asymmetric collapse more so on the right than left but without impression upon the theca l sac. L1 has bilateral intrapedicular screws. No height loss. No retropulsion. No compromise of the tr l at this level. This is the level of the conus medullaris. L2 has bilateral intrapedicular screws. Maintained height. No obvious canal compromise at this leve l. IMPRESSION: 1. In this patient who has surgical spinal fusion surgery extending from T10-L2 there are multiple co mpression fractures as described individually above. The prominent T a vertebra plana compression fra cture causes some indentation of the spinal cord right of center at this level. 2. There also multiple enhancing lesions throughout the vertebral bodies consistent with metastatic d isease. DATA REPOSITORY:
[2020-12-02] MEDS: Normal Saline Flush 10 ML SYR IVP (14:20)
[2020-12-02] MEDS: Gadoterate meglumine 20 ML VIAL 15 ML IVP (14:21)
--- NOTE | 2020-12-02 19:06 | DI.VRAD_ITS ---
PROCEDURE INFORMATION: Exam: MR Thoracic Spine Without and With Contrast Exam date and time: 12/02/2020 2:22 PM Age: 65 years old Clinical indication: Pain in thoracic spine TECHNIQUE: Imaging protocol: Multiplanar magnetic resonance images of the thoracic spine without and with contrast. Contrast material: DOTAREM; Contrast volume: 15 ml; Contrast route: INTRAVENOUS (IV); COMPARISON: MRI Spine Thoracic w/ + w/o Contrast 05/01/2018 10:05 AM , PET/CT scan dated 11/27/2020. FINDINGS: Limitations: Metallic artifact from spinal fusion hardware slightly limits evaluation. Vertebrae: There is a vertebra plana compression fracture in the T8 vertebral body with complete loss of vertebral body height, similar to recent PET-CT scan. Compression fractures also noted in the T9 and T12 vertebral bodies with greater than 50% loss in height. Multiple enhancing lesions are noted throughout the thoracic spine seen predominantly in the T9, T8, T10, T5 with additional regions of enhancement seen in multiple posterior elements. The patient is status post posterior surgical spinal fusion extending from the T10 to L2 vertebral bodies. Spinal cord: There is indentation of the right aspect of the spinal cord at the T8 level secondary to prominent T8 vertebral body fracture. No significant spinal canal stenosis. Discs/Spinal canal/Neural foramina: Mild degenerative disc disease noted without significant spinal canal stenosis. Soft tissues: Postsurgical changes noted in the subcutaneous soft tissues. IMPRESSION: 1. Multiple compression fractures again noted, similar to PET-CT scan. Prominent at T8 compression fracture causes mild indentation of the spinal cord without significant spinal canal stenosis. 2. Multiple enhancing lesions throughout the thoracic vertebral bodies are suggestive of metastatic disease. Dictated and Authenticated by: Delfina Brown MD. Ordering:LOU Mireles MD
== END 2020-12-02 13:09 ==
PROVIDERS: PCP Internal Medicine; Visit Provider Internal Medicine Hematology & Oncology
DX: C90.30 Solitary plasmacytoma not having achieved remission; C90.00 Multiple myeloma not having achieved remission; M43.25 Fusion of spine, thoracolumbar region; M48.54XA Collapsed vertebra, not elsewhere classified, thoracic region, initial encounter for fracture
CPT/HCPCS: 72157

== ENCOUNTER 2020-12-30 03:23 | Outpatient (CLI) | payer BC, SELFPAY ==
[2020-12-30 09:49] LABS: Abs Immature Grans 0.02 10^3/uL (0.0-0.06); Absolute Basophil Count 0.01 10^3/uL (0.0-0.2); Absolute Eosinophil Count 0.05 10^3/uL (0.0-0.7); Absolute Lymphocyte Count 0.22 10^3/uL (1.2-3.4); Absolute Monocyte Count 0.73 10^3/uL (0.1-0.8); Absolute Neutrophil Count 2.49 10^3/uL (1.2-6.7); Basophils % 0.3; Eosinophils % 1.4; HCT 36.9 % (40.0-50.0); HGB 11.7 g/dL (13.5-17.5); Immature Grans % 0.6; Lymphocytes % 6.3; MCH 30.5 pg (27.0-33.0); MCHC 31.7 % (32.0-36.0); MCV 96.3 fL (80-95); MPV 8.3 fL (8.0-11.0); Monocytes % 20.7; Neutrophils % 70.7; Nucleated RBC 0 %; Platelet Count 160 10^3/uL (130-400); RBC 3.83 10^6/uL (4.36-5.78); RDW 14.7 % (11.8-14.1); RDW-SD 51.8 fL; WBC 3.52 10^3/uL (4.4-10.8)
[2020-12-30 10:02] LABS: ALT 44 U/L (16-63); AST 13 U/L (15-37); Albumin 3.2 g/dL (3.4-5.0); Alkaline Phosphatase 129 U/L (46-116); Anion Gap 5.8 mmol/L (3-11); BUN 25 mg/dL (7-18); Bilirubin, Total 0.4 mg/dL (0.2-1.0); CO2 29.2 mmol/L (21.0-32.0); CREATININE 0.9 mg/dL (0.70-1.30); Calcium 8.9 mg/dL (8.5-10.1); Chloride 106 mmol/L (98-107); Glucose 107 mg/dL (74-106); Sodium 141 mmol/L (136-145); Total Protein 6.4 g/dL (6.4-8.2)
[2020-12-31 10:57] LABS: Kappa Free Light Chain 16.69 mg/dL (0.33-1.94); Lambda Free Light Chain 0.57 mg/dL (0.57-2.63)
[2020-12-31 15:24] LABS: Albumin 58.5 % (55.8-66.1); Total Protein 5.8 g/dL (6.3-8.2)
== END 2020-12-30 03:24 | disposition home or self-care (01) ==
LOC: LBO 03:23
PROVIDERS: Nurse Practitioner Family; PCP Internal Medicine; Visit Provider Internal Medicine Hematology & Oncology
DX: C90.00 Multiple myeloma not having achieved remission (principal)
CPT/HCPCS: 36415; 80053; 83883; 84165; 85025

== ENCOUNTER 2021-01-13 03:29 | Outpatient (CLI) | payer BC, SELFPAY ==
[2021-01-13 10:24] LABS: Abs Immature Grans 0.04 10^3/uL (0.0-0.06); Absolute Monocyte Count 0.43 10^3/uL (0.1-0.8); Absolute Neutrophil Count 1.95 10^3/uL (1.2-6.7); HGB 12.7 g/dL (13.5-17.5); Immature Grans % 1.6; MCH 30.7 pg (27.0-33.0); MCHC 32.6 % (32.0-36.0); MCV 94.2 fL (80-95); MPV 9.5 fL (8.0-11.0); Monocytes % 17.1; Neutrophils % 77.3; Nucleated RBC 0 %; RBC 4.14 10^6/uL (4.36-5.78); RDW 14.9 % (11.8-14.1); RDW-SD 51.3 fL; WBC 2.52 10^3/uL (4.4-10.8)
[2021-01-13 10:35] LABS: ALT 51 U/L (16-63); AST 18 U/L (15-37); Albumin 3.2 g/dL (3.4-5.0); Alkaline Phosphatase 122 U/L (46-116); Anion Gap 2.2 mmol/L (3-11); BUN 23 mg/dL (7-18); Bilirubin, Total 0.4 mg/dL (0.2-1.0); CO2 31.8 mmol/L (21.0-32.0); Calcium 9.1 mg/dL (8.5-10.1); Chloride 106 mmol/L (98-107); Glucose 108 mg/dL (74-106); Potassium 4.1 mmol/L (3.5-5.1); Sodium 140 mmol/L (136-145); Total Protein 6.5 g/dL (6.4-8.2)
[2021-01-13 10:37] LABS: Platelet Count 77 10^3/uL (130-400)
[2021-01-14 10:19] LABS: Kappa Free Light Chain 2.14 mg/dL (0.33-1.94); Lambda Free Light Chain <0.44 mg/dL (0.57-2.63)
[2021-01-15 14:58] LABS: Albumin 58.5 % (55.8-66.1); Comment (See Note)
[2021-02-09 10:41] LABS: Immunotyping, Serum (See Note)
== END 2021-01-13 03:30 | disposition home or self-care (01) ==
LOC: LBO 03:29
PROVIDERS: PCP Internal Medicine; Visit Provider Nurse Practitioner Family
DX: C90.00 Multiple myeloma not having achieved remission (principal)
CPT/HCPCS: 36415; 80053; 83883; 84165; 85025; 86320

== ENCOUNTER 2021-01-20 02:37 | Outpatient (CLI) | payer BC, SELFPAY ==
[2021-01-20 09:59] LABS: Abs Immature Grans 0.03 10^3/uL (0.0-0.06); Absolute Basophil Count 0.01 10^3/uL (0.0-0.2); Absolute Eosinophil Count 0.01 10^3/uL (0.0-0.7); Absolute Lymphocyte Count 0.09 10^3/uL (1.2-3.4); Absolute Monocyte Count 0.27 10^3/uL (0.1-0.8); Absolute Neutrophil Count 1.61 10^3/uL (1.2-6.7); Basophils % 0.5; Eosinophils % 0.5; HCT 34.6 % (40.0-50.0); HGB 11.4 g/dL (13.5-17.5); Immature Grans % 1.5; Lymphocytes % 4.5; MCH 30.6 pg (27.0-33.0); MCHC 32.9 % (32.0-36.0); Monocytes % 13.4; Neutrophils % 79.6; Nucleated RBC 0 %; RBC 3.72 10^6/uL (4.36-5.78); RDW 14.7 % (11.8-14.1); RDW-SD 50.3 fL; WBC 2.02 10^3/uL (4.4-10.8)
[2021-01-20 10:10] LABS: ALT 44 U/L (16-63); AST 16 U/L (15-37); Alkaline Phosphatase 119 U/L (46-116); Anion Gap 4.3 mmol/L (3-11); BUN 24 mg/dL (7-18); Bilirubin, Total 0.5 mg/dL (0.2-1.0); CO2 30.7 mmol/L (21.0-32.0); CREATININE 0.9 mg/dL (0.70-1.30); Chloride 103 mmol/L (98-107); Glucose 111 mg/dL (74-106); Potassium 4.1 mmol/L (3.5-5.1); Sodium 138 mmol/L (136-145); Total Protein 5.9 g/dL (6.4-8.2)
[2021-01-20 10:25] LABS: Platelet Count 50 10^3/uL (130-400)
[2021-01-20 10:26] LABS: Diff Comment Agrees w/ Instrument; RBC Morphology Normal
[2021-01-21 10:37] LABS: Kappa Free Light Chain 1.45 mg/dL (0.33-1.94); Lambda Free Light Chain <0.44 mg/dL (0.57-2.63)
[2021-01-21 12:33] LABS: Albumin 59.6 % (55.8-66.1); Comment (See Note); Total Protein 5.5 g/dL (6.3-8.2)
== END 2021-01-20 02:38 | disposition home or self-care (01) ==
LOC: LBO 02:37
PROVIDERS: PCP Internal Medicine; Visit Provider Nurse Practitioner Family
DX: C90.00 Multiple myeloma not having achieved remission (principal)
CPT/HCPCS: 36415; 80053; 83883; 84165; 85025

== ENCOUNTER 2021-01-27 02:55 | Outpatient (CLI) | payer BC, SELFPAY ==
[2021-01-27 11:14] LABS: Abs Immature Grans 0.01 10^3/uL (0.0-0.06); Absolute Lymphocyte Count 0.33 10^3/uL (1.2-3.4); Immature Grans % 0.5; Lymphocytes % 16.1; MCH 30.7 pg (27.0-33.0); Nucleated RBC 0 %; WBC 2.05 10^3/uL (4.4-10.8)
[2021-01-27 11:16] LABS: Absolute Monocyte Count 0.27 10^3/uL (0.1-0.8); Absolute Neutrophil Count 1.44 10^3/uL (1.2-6.7); HCT 36.5 % (40.0-50.0); MCHC 32.9 % (32.0-36.0); MCV 93.4 fL (80-95); MPV 9.1 fL (8.0-11.0); Monocytes % 13.2; Neutrophils % 70.2; RBC 3.91 10^6/uL (4.36-5.78); RDW 15.7 % (11.8-14.1); RDW-SD 53.3 fL
[2021-01-27 11:28] LABS: ALT 45 U/L (16-63); AST 21 U/L (15-37); Albumin 3.1 g/dL (3.4-5.0); Alkaline Phosphatase 134 U/L (46-116); Anion Gap 6.5 mmol/L (3-11); BUN 23 mg/dL (7-18); Bilirubin, Total 0.6 mg/dL (0.2-1.0); CO2 29.5 mmol/L (21.0-32.0); Calcium 8.6 mg/dL (8.5-10.1); Chloride 103 mmol/L (98-107); Glucose 132 mg/dL (74-106); Potassium 4.1 mmol/L (3.5-5.1); Sodium 139 mmol/L (136-145); Total Protein 6.3 g/dL (6.4-8.2)
[2021-01-27 11:29] LABS: Platelet Count 88 10^3/uL (130-400)
[2021-01-27 11:30] LABS: Diff Comment PLT Morph Reviewed; RBC Morphology Normal
[2021-01-28 10:26] LABS: Kappa Free Light Chain 1.44 mg/dL (0.33-1.94); Lambda Free Light Chain <0.44 mg/dL (0.57-2.63)
[2021-01-28 13:10] LABS: Albumin 60.3 % (55.8-66.1); Comment (See Note); Total Protein 5.6 g/dL (6.3-8.2)
== END 2021-01-27 02:56 | disposition home or self-care (01) ==
LOC: LBO 02:55
PROVIDERS: PCP Internal Medicine; Visit Provider Internal Medicine Hematology & Oncology
DX: C90.00 Multiple myeloma not having achieved remission (principal)
CPT/HCPCS: 36415; 80053; 83883; 84165; 85025

== ENCOUNTER 2021-02-03 02:49 | Outpatient (CLI) | payer BC, SELFPAY ==
[2021-02-03 12:46] LABS: Abs Immature Grans 0.03 10^3/uL (0.0-0.06); Absolute Basophil Count 0.01 10^3/uL (0.0-0.2); Absolute Lymphocyte Count 0.59 10^3/uL (1.2-3.4); Absolute Monocyte Count 0.39 10^3/uL (0.1-0.8); Absolute Neutrophil Count 1.53 10^3/uL (1.2-6.7); Basophils % 0.4; HCT 33.7 % (40.0-50.0); HGB 10.7 g/dL (13.5-17.5); Immature Grans % 1.2; Lymphocytes % 23.1; MCH 30.5 pg (27.0-33.0); MCHC 31.8 % (32.0-36.0); Monocytes % 15.3; Nucleated RBC 0 %; RBC 3.51 10^6/uL (4.36-5.78); RDW 16.5 % (11.8-14.1); RDW-SD 57.3 fL; WBC 2.55 10^3/uL (4.4-10.8)
[2021-02-03 12:57] LABS: Anisocytosis 1+; Diff Comment Diff Reviewed; Platelet Count 67 10^3/uL (130-400)
[2021-02-03 13:01] LABS: ALT 42 U/L (16-63); AST 17 U/L (15-37); Albumin 2.9 g/dL (3.4-5.0); Alkaline Phosphatase 115 U/L (46-116); Anion Gap 3.5 mmol/L (3-11); BUN 21 mg/dL (7-18); Bilirubin, Total 0.5 mg/dL (0.2-1.0); CO2 29.5 mmol/L (21.0-32.0); CREATININE 0.9 mg/dL (0.70-1.30); Calcium 8.7 mg/dL (8.5-10.1); Chloride 106 mmol/L (98-107); Glucose 106 mg/dL (74-106); Potassium 3.8 mmol/L (3.5-5.1); Sodium 139 mmol/L (136-145); Total Protein 5.8 g/dL (6.4-8.2)
[2021-02-04 08:25] LABS: Kappa Free Light Chain 1.32 mg/dL (0.33-1.94); Lambda Free Light Chain <0.44 mg/dL (0.57-2.63)
[2021-02-04 13:11] LABS: Albumin 62.2 % (55.8-66.1); Comment (See Note); Total Protein 5.3 g/dL (6.3-8.2)
== END 2021-02-03 02:50 | disposition home or self-care (01) ==
LOC: LBO 02:49
PROVIDERS: PCP Internal Medicine; Visit Provider Internal Medicine Hematology & Oncology
DX: C90.00 Multiple myeloma not having achieved remission (principal)
CPT/HCPCS: 36415; 80053; 83883; 84165; 85025

== ENCOUNTER 2021-02-10 04:13 | Outpatient (CLI) | payer BC, SELFPAY ==
[2021-02-10 12:42] LABS: Abs Immature Grans 0.06 10^3/uL (0.0-0.06); Absolute Lymphocyte Count 1.11 10^3/uL (1.2-3.4); Absolute Monocyte Count 0.69 10^3/uL (0.1-0.8); Absolute Neutrophil Count 2.79 10^3/uL (1.2-6.7); HCT 32.7 % (40.0-50.0); HGB 10.5 g/dL (13.5-17.5); Immature Grans % 1.3; Lymphocytes % 23.9; MCH 31.7 pg (27.0-33.0); MCHC 32.1 % (32.0-36.0); MCV 98.8 fL (80-95); MPV 8.7 fL (8.0-11.0); Monocytes % 14.8; Nucleated RBC 0 %; Platelet Count 143 10^3/uL (130-400); RBC 3.31 10^6/uL (4.36-5.78); RDW 17.8 % (11.8-14.1); RDW-SD 63.2 fL; WBC 4.65 10^3/uL (4.4-10.8)
[2021-02-10 12:57] LABS: ALT 39 U/L (16-63); AST 13 U/L (15-37); Albumin 3.1 g/dL (3.4-5.0); Alkaline Phosphatase 110 U/L (46-116); Anion Gap 2.6 mmol/L (3-11); BUN 19 mg/dL (7-18); Bilirubin, Total 0.5 mg/dL (0.2-1.0); CO2 31.4 mmol/L (21.0-32.0); CREATININE 0.9 mg/dL (0.70-1.30); Calcium 8.5 mg/dL (8.5-10.1); Chloride 104 mmol/L (98-107); Glucose 115 mg/dL (74-106); Potassium 4.2 mmol/L (3.5-5.1); Sodium 138 mmol/L (136-145)
[2021-02-11 11:19] LABS: Kappa Free Light Chain 1.41 mg/dL (0.33-1.94); Lambda Free Light Chain <0.44 mg/dL (0.57-2.63)
[2021-02-11 14:35] LABS: Albumin 62.4 % (55.8-66.1); Comment (See Note); Total Protein 5.4 g/dL (6.3-8.2)
== END 2021-02-10 04:14 | disposition home or self-care (01) ==
LOC: LBO 04:13
PROVIDERS: PCP Internal Medicine; Visit Provider Internal Medicine Hematology & Oncology
DX: C90.00 Multiple myeloma not having achieved remission (principal)
CPT/HCPCS: 36415; 80053; 83883; 84165; 85025

== ENCOUNTER 2021-02-24 00:43 | Outpatient (CLI) | payer BC, SELFPAY ==
[2021-02-24 11:45] LABS: Abs Immature Grans 0.05 10^3/uL (0.0-0.06); Absolute Lymphocyte Count 0.79 10^3/uL (1.2-3.4); Absolute Monocyte Count 0.85 10^3/uL (0.1-0.8); Absolute Neutrophil Count 3.38 10^3/uL (1.2-6.7); HCT 32.6 % (40.0-50.0); HGB 10.2 g/dL (13.5-17.5); Lymphocytes % 15.6; MCH 32.3 pg (27.0-33.0); MCHC 31.3 % (32.0-36.0); MCV 103.2 fL (80-95); MPV 8.7 fL (8.0-11.0); Monocytes % 16.8; Neutrophils % 66.6; Nucleated RBC 0 %; Platelet Count 163 10^3/uL (130-400); RBC 3.16 10^6/uL (4.36-5.78); RDW 18.5 % (11.8-14.1); RDW-SD 69.9 fL; WBC 5.07 10^3/uL (4.4-10.8)
[2021-02-24 11:59] LABS: ALT 21 U/L (16-63); AST 6 U/L (15-37); Albumin 3.1 g/dL (3.4-5.0); Alkaline Phosphatase 93 U/L (46-116); Anion Gap 4.7 mmol/L (3-11); BUN 18 mg/dL (7-18); Bilirubin, Total 0.5 mg/dL (0.2-1.0); CO2 30.3 mmol/L (21.0-32.0); CREATININE 0.9 mg/dL (0.70-1.30); Calcium 8.7 mg/dL (8.5-10.1); Chloride 104 mmol/L (98-107); Glucose 103 mg/dL (74-106); Potassium 4.3 mmol/L (3.5-5.1); Sodium 139 mmol/L (136-145); Total Protein 6.1 g/dL (6.4-8.2)
[2021-02-25 09:54] LABS: Kappa Free Light Chain 1.31 mg/dL (0.33-1.94); Lambda Free Light Chain <0.44 mg/dL (0.57-2.63)
[2021-02-25 13:11] LABS: Albumin 64.9 % (55.8-66.1); Comment (See Note); Total Protein 5.7 g/dL (6.3-8.2)
== END 2021-02-24 00:44 | disposition home or self-care (01) ==
LOC: LBO 00:43
PROVIDERS: Nurse Practitioner Family; PCP Internal Medicine; Visit Provider Internal Medicine Hematology & Oncology
DX: C90.00 Multiple myeloma not having achieved remission (principal)
CPT/HCPCS: 36415; 80053; 83883; 84165; 85025

== ENCOUNTER 2021-03-10 02:49 | Outpatient (CLI) | payer BC, SELFPAY ==
[2021-03-10 13:10] LABS: Abs Immature Grans 0.04 10^3/uL (0.0-0.06); Absolute Basophil Count 0.01 10^3/uL (0.0-0.2); Absolute Eosinophil Count 0.03 10^3/uL (0.0-0.7); Absolute Lymphocyte Count 0.41 10^3/uL (1.2-3.4); Absolute Monocyte Count 1.04 10^3/uL (0.1-0.8); Absolute Neutrophil Count 3.92 10^3/uL (1.2-6.7); Basophils % 0.2; Eosinophils % 0.6; HCT 32.3 % (40.0-50.0); HGB 10.4 g/dL (13.5-17.5); Immature Grans % 0.7; Lymphocytes % 7.5; MCH 33.2 pg (27.0-33.0); MCHC 32.2 % (32.0-36.0); MCV 103.2 fL (80-95); MPV 9.8 fL (8.0-11.0); Monocytes % 19.1; Neutrophils % 71.9; Nucleated RBC 0 %; Platelet Count 123 10^3/uL (130-400); RBC 3.13 10^6/uL (4.36-5.78); RDW 17.6 % (11.8-14.1); RDW-SD 67.3 fL; WBC 5.45 10^3/uL (4.4-10.8)
[2021-03-10 13:36] LABS: ALT 20 U/L (16-63); AST 9 U/L (15-37); Albumin 3.2 g/dL (3.4-5.0); Alkaline Phosphatase 82 U/L (46-116); Anion Gap 4.7 mmol/L (3-11); BUN 15 mg/dL (7-18); Bilirubin, Total 0.7 mg/dL (0.2-1.0); CO2 29.3 mmol/L (21.0-32.0); CREATININE 0.9 mg/dL (0.70-1.30); Calcium 8.9 mg/dL (8.5-10.1); Chloride 105 mmol/L (98-107); Glucose 87 mg/dL (74-106); Potassium 4.1 mmol/L (3.5-5.1); Sodium 139 mmol/L (136-145); Total Protein 6.3 g/dL (6.4-8.2)
[2021-03-11 10:06] LABS: Kappa Free Light Chain 1.33 mg/dL (0.33-1.94); Lambda Free Light Chain <0.44 mg/dL (0.57-2.63)
[2021-03-11 13:54] LABS: Albumin 63.9 % (55.8-66.1); Comment (See Note); Total Protein 5.9 g/dL (6.3-8.2)
== END 2021-03-10 02:50 | disposition home or self-care (01) ==
LOC: LBO 02:49
PROVIDERS: Nurse Practitioner Family; PCP Internal Medicine; Visit Provider Internal Medicine Hematology & Oncology
DX: C90.02 Multiple myeloma in relapse (principal)
CPT/HCPCS: 36415; 80053; 83883; 84165; 85025

== ENCOUNTER 2021-03-24 04:26 | Outpatient (CLI) | payer BC, SELFPAY ==
[2021-03-24 11:32] LABS: Abs Immature Grans 0.01 10^3/uL (0.0-0.06); Absolute Basophil Count 0.01 10^3/uL (0.0-0.2); Absolute Eosinophil Count 0.06 10^3/uL (0.0-0.7); Absolute Monocyte Count 0.75 10^3/uL (0.1-0.8); Absolute Neutrophil Count 3.98 10^3/uL (1.2-6.7); Basophils % 0.2; Eosinophils % 1.2; HGB 10.1 g/dL (13.5-17.5); Immature Grans % 0.2; Lymphocytes % 7.7; MCH 33.3 pg (27.0-33.0); MCHC 31.6 % (32.0-36.0); MCV 105.6 fL (80-95); MPV 8.5 fL (8.0-11.0); Monocytes % 14.4; Neutrophils % 76.3; Nucleated RBC 0 %; Platelet Count 226 10^3/uL (130-400); RBC 3.03 10^6/uL (4.36-5.78); RDW 15.4 % (11.8-14.1); RDW-SD 60.3 fL; WBC 5.21 10^3/uL (4.4-10.8)
[2021-03-24 11:45] LABS: ALT 21 U/L (16-63); AST 14 U/L (15-37); Albumin 3.6 g/dL (3.4-5.0); Alkaline Phosphatase 92 U/L (46-116); Anion Gap 5.7 mmol/L (3-11); BUN 18 mg/dL (7-18); Bilirubin, Total 0.6 mg/dL (0.2-1.0); CO2 30.3 mmol/L (21.0-32.0); CREATININE 0.9 mg/dL (0.70-1.30); Calcium 9.1 mg/dL (8.5-10.1); Chloride 104 mmol/L (98-107); Glucose 98 mg/dL (74-106); Potassium 3.8 mmol/L (3.5-5.1); Sodium 140 mmol/L (136-145); Total Protein 6.7 g/dL (6.4-8.2)
[2021-03-25 09:48] LABS: Kappa Free Light Chain 1.61 mg/dL (0.33-1.94); Lambda Free Light Chain <0.44 mg/dL (0.57-2.63)
[2021-03-25 13:41] LABS: Albumin 61.6 % (55.8-66.1); Comment (See Note); Total Protein 6.2 g/dL (6.3-8.2)
== END 2021-03-24 04:27 | disposition home or self-care (01) ==
LOC: LBO 04:26
PROVIDERS: PCP Internal Medicine; Visit Provider Internal Medicine Hematology & Oncology
DX: C90.02 Multiple myeloma in relapse (principal)
CPT/HCPCS: 36415; 80053; 83883; 84165; 85025

== ENCOUNTER 2021-04-07 03:29 | Outpatient (CLI) | payer BC, SELFPAY ==
[2021-04-07 11:55] LABS: Abs Immature Grans 0.04 10^3/uL (0.0-0.06); Absolute Basophil Count 0.01 10^3/uL (0.0-0.2); Absolute Eosinophil Count 0.01 10^3/uL (0.0-0.7); Absolute Lymphocyte Count 0.39 10^3/uL (1.2-3.4); Absolute Monocyte Count 0.85 10^3/uL (0.1-0.8); Absolute Neutrophil Count 7.15 10^3/uL (1.2-6.7); Basophils % 0.1; Eosinophils % 0.1; HCT 33.2 % (40.0-50.0); HGB 10.5 g/dL (13.5-17.5); Immature Grans % 0.5; Lymphocytes % 4.6; MCHC 31.6 % (32.0-36.0); MCV 107.4 fL (80-95); MPV 9.2 fL (8.0-11.0); Monocytes % 10.1; Neutrophils % 84.6; Nucleated RBC 0 %; Platelet Count 119 10^3/uL (130-400); RBC 3.09 10^6/uL (4.36-5.78); RDW 14.7 % (11.8-14.1); RDW-SD 58.2 fL; WBC 8.45 10^3/uL (4.4-10.8)
[2021-04-07 12:06] LABS: ALT 22 U/L (16-63); AST 10 U/L (15-37); Albumin 3.5 g/dL (3.4-5.0); Alkaline Phosphatase 84 U/L (46-116); Anion Gap 2.7 mmol/L (3-11); BUN 23 mg/dL (7-18); Bilirubin, Total 0.6 mg/dL (0.2-1.0); CO2 33.3 mmol/L (21.0-32.0); CREATININE 0.8 mg/dL (0.70-1.30); Calcium 8.9 mg/dL (8.5-10.1); Chloride 106 mmol/L (98-107); Glucose 96 mg/dL (74-106); Potassium 4.5 mmol/L (3.5-5.1); Sodium 142 mmol/L (136-145); Total Protein 6.4 g/dL (6.4-8.2)
[2021-04-08 09:08] LABS: Kappa Free Light Chain 1.92 mg/dL (0.33-1.94); Lambda Free Light Chain <0.44 mg/dL (0.57-2.63)
[2021-04-08 15:18] LABS: Comment (See Note); Total Protein 6.1 g/dL (6.3-8.2)
== END 2021-04-07 03:30 | disposition home or self-care (01) ==
LOC: LBO 03:29
PROVIDERS: PCP Internal Medicine; Visit Provider Internal Medicine Hematology & Oncology
DX: C90.02 Multiple myeloma in relapse (principal)
CPT/HCPCS: 36415; 80053; 83883; 84165; 85025

== ENCOUNTER 2021-05-26 02:59 | Outpatient (CLI) | payer BC, SELFPAY ==
[2021-05-26 11:23] LABS: Abs Immature Grans 0.04 10^3/uL (0.0-0.06); Absolute Basophil Count 0.02 10^3/uL (0.0-0.2); Absolute Lymphocyte Count 0.24 10^3/uL (1.2-3.4); Absolute Neutrophil Count 5.02 10^3/uL (1.2-6.7); Basophils % 0.3; HCT 35.2 % (40.0-50.0); HGB 11.2 g/dL (13.5-17.5); Immature Grans % 0.6; Lymphocytes % 3.8; MCH 31.6 pg (27.0-33.0); MCHC 31.8 % (32.0-36.0); MCV 99.4 fL (80-95); MPV 8.3 fL (8.0-11.0); Monocytes % 15.8; Neutrophils % 79.5; Nucleated RBC 0 %; Platelet Count 360 10^3/uL (130-400); RBC 3.54 10^6/uL (4.36-5.78); RDW 13.7 % (11.8-14.1); RDW-SD 50.2 fL; WBC 6.32 10^3/uL (4.4-10.8)
[2021-05-26 11:36] LABS: ALT 19 U/L (16-63); AST 11 U/L (15-37); Albumin 2.9 g/dL (3.4-5.0); Alkaline Phosphatase 81 U/L (46-116); Anion Gap 2.5 mmol/L (3-11); BUN 18 mg/dL (7-18); Bilirubin, Total 0.5 mg/dL (0.2-1.0); CO2 34.5 mmol/L (21.0-32.0); CREATININE 0.9 mg/dL (0.70-1.30); Calcium 8.8 mg/dL (8.5-10.1); Chloride 95 mmol/L (98-107); Glucose 107 mg/dL (74-106); Potassium 3.9 mmol/L (3.5-5.1); Sodium 132 mmol/L (136-145); Total Protein 6.3 g/dL (6.4-8.2)
[2021-05-27 09:47] LABS: Kappa Free Light Chain 2.92 mg/dL (0.33-1.94); Lambda Free Light Chain <0.44 mg/dL (0.57-2.63)
[2021-05-27 11:19] LABS: Albumin 54.9 % (55.8-66.1); Comment (See Note); Total Protein 5.8 g/dL (6.3-8.2)
== END 2021-05-26 03:00 | disposition home or self-care (01) ==
LOC: LBO 02:59
PROVIDERS: PCP Internal Medicine; Visit Provider Nurse Practitioner Family
DX: C90.02 Multiple myeloma in relapse (principal)
CPT/HCPCS: 36415; 80053; 83883; 84165; 85025

== ENCOUNTER 2021-06-09 14:56 | Outpatient (CLI) | payer BC, SELFPAY ==
[2021-06-09 11:10] LABS: Abs Immature Grans 0.02 10^3/uL (0.0-0.06); Absolute Basophil Count 0.01 10^3/uL (0.0-0.2); Absolute Lymphocyte Count 0.86 10^3/uL (1.2-3.4); Absolute Monocyte Count 0.72 10^3/uL (0.1-0.8); Basophils % 0.2; HCT 34.6 % (40.0-50.0); HGB 10.7 g/dL (13.5-17.5); Immature Grans % 0.4; Lymphocytes % 16.8; MCH 31.8 pg (27.0-33.0); MCHC 30.9 % (32.0-36.0); MPV 8.2 fL (8.0-11.0); Monocytes % 14.1; Neutrophils % 68.5; Nucleated RBC 0 %; Platelet Count 260 10^3/uL (130-400); RBC 3.36 10^6/uL (4.36-5.78); RDW 14.6 % (11.8-14.1); RDW-SD 55.7 fL; WBC 5.11 10^3/uL (4.4-10.8)
[2021-06-09 11:23] LABS: ALT 18 U/L (16-63); AST 15 U/L (15-37); Alkaline Phosphatase 88 U/L (46-116); Anion Gap 7.8 mmol/L (3-11); BUN 13 mg/dL (7-18); Bilirubin, Total 0.4 mg/dL (0.2-1.0); CO2 31.2 mmol/L (21.0-32.0); CREATININE 0.9 mg/dL (0.70-1.30); Calcium 8.9 mg/dL (8.5-10.1); Chloride 104 mmol/L (98-107); Glucose 102 mg/dL (74-106); Potassium 4.3 mmol/L (3.5-5.1); Sodium 143 mmol/L (136-145)
[2021-06-10 10:38] LABS: Kappa Free Light Chain 4.02 mg/dL (0.33-1.94); Lambda Free Light Chain <0.44 mg/dL (0.57-2.63)
[2021-06-10 12:05] LABS: Albumin 61.2 % (55.8-66.1); Comment (See Note); Total Protein 5.6 g/dL (6.3-8.2)
== END 2021-06-09 14:57 | disposition home or self-care (01) ==
LOC: LBO 14:57
PROVIDERS: PCP Internal Medicine; Visit Provider Internal Medicine Hematology & Oncology
DX: C90.00 Multiple myeloma not having achieved remission (principal)
CPT/HCPCS: 36415; 80053; 83883; 84165; 85025

== ENCOUNTER 2021-06-16 03:19 | Outpatient (CLI) | payer BC, SELFPAY ==
[2021-06-16 11:27] LABS: Abs Immature Grans 0.06 10^3/uL (0.0-0.06); Absolute Basophil Count 0.01 10^3/uL (0.0-0.2); Absolute Eosinophil Count 0.05 10^3/uL (0.0-0.7); Absolute Lymphocyte Count 1.35 10^3/uL (1.2-3.4); Absolute Neutrophil Count 4.25 10^3/uL (1.2-6.7); Basophils % 0.1; Eosinophils % 0.7; HCT 37.8 % (40.0-50.0); HGB 11.6 g/dL (13.5-17.5); Immature Grans % 0.9; Lymphocytes % 19.2; MCH 32.1 pg (27.0-33.0); MCHC 30.7 % (32.0-36.0); MCV 104.7 fL (80-95); MPV 8.8 fL (8.0-11.0); Monocytes % 18.5; Neutrophils % 60.6; Nucleated RBC 0 %; Platelet Count 145 10^3/uL (130-400); RBC 3.61 10^6/uL (4.36-5.78); RDW 15.4 % (11.8-14.1); RDW-SD 59.3 fL; WBC 7.02 10^3/uL (4.4-10.8)
[2021-06-16 11:41] LABS: ALT 31 U/L (16-63); AST 20 U/L (15-37); Albumin 3.2 g/dL (3.4-5.0); Alkaline Phosphatase 92 U/L (46-116); Anion Gap 3.2 mmol/L (3-11); BUN 17 mg/dL (7-18); Bilirubin, Total 0.4 mg/dL (0.2-1.0); CO2 31.8 mmol/L (21.0-32.0); CREATININE 0.8 mg/dL (0.70-1.30); Calcium 8.9 mg/dL (8.5-10.1); Chloride 103 mmol/L (98-107); Glucose 101 mg/dL (74-106); Potassium 4.6 mmol/L (3.5-5.1); Sodium 138 mmol/L (136-145); Total Protein 6.2 g/dL (6.4-8.2)
[2021-06-17 09:39] LABS: Kappa Free Light Chain 3.53 mg/dL (0.33-1.94); Lambda Free Light Chain <0.44 mg/dL (0.57-2.63)
[2021-06-17 13:31] LABS: Albumin 64.1 % (55.8-66.1); Comment (See Note); Total Protein 5.7 g/dL (6.3-8.2)
== END 2021-06-16 03:20 | disposition home or self-care (01) ==
LOC: LBO 03:19
PROVIDERS: Nurse Practitioner Family; PCP Internal Medicine; Visit Provider Internal Medicine Hematology & Oncology
DX: C90.00 Multiple myeloma not having achieved remission (principal)
CPT/HCPCS: 36415; 80053; 83883; 84165; 85025

== ENCOUNTER 2021-06-23 02:03 | Outpatient (CLI) | payer BC, SELFPAY ==
[2021-06-23 12:19] LABS: Abs Immature Grans 0.04 10^3/uL (0.0-0.06); Absolute Basophil Count 0.01 10^3/uL (0.0-0.2); Absolute Eosinophil Count 0.01 10^3/uL (0.0-0.7); Absolute Lymphocyte Count 1.03 10^3/uL (1.2-3.4); Absolute Monocyte Count 1.23 10^3/uL (0.1-0.8); Absolute Neutrophil Count 5.72 10^3/uL (1.2-6.7); Basophils % 0.1; Eosinophils % 0.1; HCT 35.3 % (40.0-50.0); HGB 10.9 g/dL (13.5-17.5); Immature Grans % 0.5; Lymphocytes % 12.8; MCHC 30.9 % (32.0-36.0); MCV 103.5 fL (80-95); MPV 9.2 fL (8.0-11.0); Monocytes % 15.3; Neutrophils % 71.2; Nucleated RBC 0 %; Platelet Count 133 10^3/uL (130-400); RBC 3.41 10^6/uL (4.36-5.78); RDW 15.7 % (11.8-14.1); RDW-SD 59.9 fL; WBC 8.04 10^3/uL (4.4-10.8)
[2021-06-23 12:30] LABS: ALT 28 U/L (16-63); AST 16 U/L (15-37); Albumin 3.3 g/dL (3.4-5.0); Alkaline Phosphatase 82 U/L (46-116); Anion Gap 5.2 mmol/L (3-11); BUN 18 mg/dL (7-18); Bilirubin, Total 0.5 mg/dL (0.2-1.0); CO2 28.8 mmol/L (21.0-32.0); CREATININE 0.9 mg/dL (0.70-1.30); Calcium 8.8 mg/dL (8.5-10.1); Chloride 104 mmol/L (98-107); Glucose 97 mg/dL (74-106); Potassium 4.5 mmol/L (3.5-5.1); Sodium 138 mmol/L (136-145); Total Protein 6.2 g/dL (6.4-8.2)
[2021-06-24 10:52] LABS: IgA <13 mg/dL (85-499); IgG 301 mg/dL (610-1,616); IgM <12 mg/dL (35-242)
[2021-06-24 13:15] LABS: Albumin 66.1 % (55.8-66.1); Comment (See Note); Total Protein 5.8 g/dL (6.3-8.2)
== END 2021-06-23 02:04 | disposition home or self-care (01) ==
LOC: LBO 02:04
PROVIDERS: PCP Internal Medicine; Visit Provider Internal Medicine Hematology & Oncology
DX: C90.00 Multiple myeloma not having achieved remission (principal)
CPT/HCPCS: 36415; 80053; 82784; 84165; 85025

== ENCOUNTER 2021-07-07 03:15 | Outpatient (CLI) | payer BC, SELFPAY ==
[2021-07-07 12:51] LABS: Abs Immature Grans 0.01 10^3/uL (0.0-0.06); Absolute Basophil Count 0.01 10^3/uL (0.0-0.2); Absolute Eosinophil Count 0.01 10^3/uL (0.0-0.7); Absolute Lymphocyte Count 0.78 10^3/uL (1.2-3.4); Absolute Monocyte Count 0.93 10^3/uL (0.1-0.8); Absolute Neutrophil Count 4.58 10^3/uL (1.2-6.7); Basophils % 0.2; Eosinophils % 0.2; HCT 34.8 % (40.0-50.0); HGB 10.9 g/dL (13.5-17.5); Immature Grans % 0.2; Lymphocytes % 12.3; MCH 31.7 pg (27.0-33.0); MCHC 31.3 % (32.0-36.0); MCV 101.2 fL (80-95); MPV 8.6 fL (8.0-11.0); Monocytes % 14.7; Neutrophils % 72.4; Nucleated RBC 0 %; Platelet Count 270 10^3/uL (130-400); RBC 3.44 10^6/uL (4.36-5.78); RDW 14.8 % (11.8-14.1); WBC 6.32 10^3/uL (4.4-10.8)
[2021-07-07 13:06] LABS: ALT 15 U/L (16-63); AST 12 U/L (15-37); Albumin 3.4 g/dL (3.4-5.0); Alkaline Phosphatase 82 U/L (46-116); Anion Gap 6.7 mmol/L (3-11); BUN 14 mg/dL (7-18); Bilirubin, Total 0.6 mg/dL (0.2-1.0); CO2 29.3 mmol/L (21.0-32.0); CREATININE 0.8 mg/dL (0.70-1.30); Calcium 8.9 mg/dL (8.5-10.1); Chloride 103 mmol/L (98-107); Glucose 96 mg/dL (74-106); Potassium 3.9 mmol/L (3.5-5.1); Sodium 139 mmol/L (136-145); Total Protein 6.7 g/dL (6.4-8.2)
[2021-07-08 11:15] LABS: Lambda Free Light Chain <0.44 mg/dL (0.57-2.63)
[2021-07-08 19:02] LABS: Albumin 61.7 % (55.8-66.1); Comment (See Note)
== END 2021-07-07 03:16 | disposition home or self-care (01) ==
PROVIDERS: PCP Internal Medicine; Visit Provider Nurse Practitioner Family
DX: C90.00 Multiple myeloma not having achieved remission (principal)
CPT/HCPCS: 36415; 80053; 83883; 84165; 85025

== ENCOUNTER 2021-07-21 02:29 | Outpatient (CLI) | payer BC, SELFPAY ==
[2021-07-21 11:20] LABS: Abs Immature Grans 0.04 10^3/uL (0.0-0.06); Absolute Basophil Count 0.01 10^3/uL (0.0-0.2); Absolute Eosinophil Count 0.01 10^3/uL (0.0-0.7); Absolute Lymphocyte Count 0.74 10^3/uL (1.2-3.4); Absolute Neutrophil Count 5.74 10^3/uL (1.2-6.7); Basophils % 0.1; Eosinophils % 0.1; HCT 37.4 % (40.0-50.0); HGB 11.7 g/dL (13.5-17.5); Immature Grans % 0.5; Lymphocytes % 9.7; MCH 31.9 pg (27.0-33.0); MCHC 31.3 % (32.0-36.0); MCV 101.9 fL (80-95); MPV 9.5 fL (8.0-11.0); Monocytes % 14.4; Neutrophils % 75.2; Nucleated RBC 0 %; Platelet Count 156 10^3/uL (130-400); RBC 3.67 10^6/uL (4.36-5.78); RDW 15.3 % (11.8-14.1); RDW-SD 58.4 fL; WBC 7.64 10^3/uL (4.4-10.8)
[2021-07-21 11:46] LABS: ALT 18 U/L (16-63); AST 13 U/L (15-37); Albumin 3.7 g/dL (3.4-5.0); Alkaline Phosphatase 79 U/L (46-116); Anion Gap 7.4 mmol/L (3-11); BUN 18 mg/dL (7-18); Bilirubin, Total 0.8 mg/dL (0.2-1.0); CO2 29.6 mmol/L (21.0-32.0); CREATININE 0.8 mg/dL (0.70-1.30); Calcium 9.4 mg/dL (8.5-10.1); Chloride 105 mmol/L (98-107); Glucose 86 mg/dL (74-106); Potassium 3.9 mmol/L (3.5-5.1); Sodium 142 mmol/L (136-145); Total Protein 6.7 g/dL (6.4-8.2)
[2021-07-22 11:06] LABS: IgA <13 mg/dL (85-499); IgG 355 mg/dL (610-1,616); IgM <12 mg/dL (35-242)
[2021-07-22 14:46] LABS: Albumin 65.6 % (55.8-66.1); Comment (See Note); Total Protein 5.9 g/dL (6.3-8.2)
== END 2021-07-21 02:30 | disposition home or self-care (01) ==
LOC: LBO 02:30
PROVIDERS: PCP Internal Medicine; Visit Provider Nurse Practitioner Family
DX: C90.00 Multiple myeloma not having achieved remission (principal)
CPT/HCPCS: 36415; 80053; 82784; 84165; 85025

== ENCOUNTER 2021-08-04 01:40 | Outpatient (CLI) | payer BC, SELFPAY ==
[2021-08-04 11:01] LABS: Abs Immature Grans 0.01 10^3/uL (0.0-0.06); Absolute Basophil Count 0.01 10^3/uL (0.0-0.2); Absolute Eosinophil Count 0.03 10^3/uL (0.0-0.7); Absolute Lymphocyte Count 0.45 10^3/uL (1.2-3.4); Absolute Monocyte Count 0.69 10^3/uL (0.1-0.8); Absolute Neutrophil Count 3.05 10^3/uL (1.2-6.7); Basophils % 0.2; Eosinophils % 0.7; HCT 34.6 % (40.0-50.0); HGB 10.8 g/dL (13.5-17.5); Immature Grans % 0.2; Lymphocytes % 10.6; MCH 31.7 pg (27.0-33.0); MCHC 31.2 % (32.0-36.0); MCV 101.5 fL (80-95); MPV 8.3 fL (8.0-11.0); Monocytes % 16.3; Nucleated RBC 0 %; Platelet Count 247 10^3/uL (130-400); RBC 3.41 10^6/uL (4.36-5.78); RDW 14.7 % (11.8-14.1); RDW-SD 55.8 fL; WBC 4.24 10^3/uL (4.4-10.8)
[2021-08-04 11:15] LABS: ALT 12 U/L (16-63); AST 12 U/L (15-37); Albumin 3.6 g/dL (3.4-5.0); Alkaline Phosphatase 75 U/L (46-116); Anion Gap 6.9 mmol/L (3-11); BUN 22 mg/dL (7-18); Bilirubin, Total 0.4 mg/dL (0.2-1.0); CO2 30.1 mmol/L (21.0-32.0); CREATININE 0.8 mg/dL (0.70-1.30); Calcium 9.1 mg/dL (8.5-10.1); Chloride 106 mmol/L (98-107); Glucose 102 mg/dL (74-106); Potassium 4.4 mmol/L (3.5-5.1); Sodium 143 mmol/L (136-145); Total Protein 6.4 g/dL (6.4-8.2)
[2021-08-05 08:43] LABS: Kappa Free Light Chain 7.87 mg/dL (0.33-1.94); Lambda Free Light Chain <0.44 mg/dL (0.57-2.63)
[2021-08-05 13:00] LABS: Albumin 65.3 % (55.8-66.1); Comment (See Note); Total Protein 5.7 g/dL (6.3-8.2)
== END 2021-08-04 01:41 | disposition home or self-care (01) ==
LOC: LBO 01:41
PROVIDERS: Nurse Practitioner Family; PCP Internal Medicine; Visit Provider Internal Medicine Hematology & Oncology
DX: C90.00 Multiple myeloma not having achieved remission (principal)
CPT/HCPCS: 36415; 80053; 83883; 84165; 85025

== ENCOUNTER 2021-08-18 02:31 | Outpatient (CLI) | payer BC, SELFPAY ==
[2021-08-18 12:52] LABS: Abs Immature Grans 0.03 10^3/uL (0.0-0.06); Absolute Basophil Count 0.01 10^3/uL (0.0-0.2); Absolute Eosinophil Count 0.01 10^3/uL (0.0-0.7); Absolute Lymphocyte Count 0.51 10^3/uL (1.2-3.4); Absolute Monocyte Count 0.97 10^3/uL (0.1-0.8); Absolute Neutrophil Count 4.86 10^3/uL (1.2-6.7); Basophils % 0.2; Eosinophils % 0.2; HCT 36.6 % (40.0-50.0); HGB 11.5 g/dL (13.5-17.5); Immature Grans % 0.5; MCH 31.9 pg (27.0-33.0); MCHC 31.4 % (32.0-36.0); MCV 101.4 fL (80-95); MPV 9.2 fL (8.0-11.0); Monocytes % 15.2; Neutrophils % 75.9; Nucleated RBC 0 %; Platelet Count 137 10^3/uL (130-400); RBC 3.61 10^6/uL (4.36-5.78); RDW 14.6 % (11.8-14.1); RDW-SD 54.7 fL; WBC 6.39 10^3/uL (4.4-10.8)
[2021-08-18 13:10] LABS: ALT 23 U/L (16-63); AST 9 U/L (15-37); Albumin 3.7 g/dL (3.4-5.0); Alkaline Phosphatase 72 U/L (46-116); Anion Gap 4.7 mmol/L (3-11); BUN 24 mg/dL (7-18); Bilirubin, Total 0.6 mg/dL (0.2-1.0); CO2 29.3 mmol/L (21.0-32.0); CREATININE 0.9 mg/dL (0.70-1.30); Calcium 8.7 mg/dL (8.5-10.1); Chloride 108 mmol/L (98-107); Glucose 97 mg/dL (74-106); Potassium 4.3 mmol/L (3.5-5.1); Sodium 142 mmol/L (136-145); Total Protein 6.4 g/dL (6.4-8.2)
== END 2021-08-18 02:32 | disposition home or self-care (01) ==
LOC: LBO 02:31
PROVIDERS: Nurse Practitioner Family; PCP Internal Medicine; Visit Provider Internal Medicine Hematology & Oncology
DX: C90.00 Multiple myeloma not having achieved remission (principal)
CPT/HCPCS: 36415; 80053; 83883; 84165; 85025

== ENCOUNTER 2021-09-29 04:42 | Outpatient (CLI) | payer BC, SELFPAY ==
[2021-09-29 13:12] LABS: Abs Immature Grans 0.01 10^3/uL (0.0-0.06); Absolute Basophil Count 0.01 10^3/uL (0.0-0.2); Absolute Eosinophil Count 0.03 10^3/uL (0.0-0.7); Absolute Monocyte Count 0.69 10^3/uL (0.1-0.8); Absolute Neutrophil Count 4.11 10^3/uL (1.2-6.7); Basophils % 0.2; Eosinophils % 0.6; HCT 35.5 % (40.0-50.0); HGB 11.2 g/dL (13.5-17.5); Immature Grans % 0.2; Lymphocytes % 9.3; MCH 32.3 pg (27.0-33.0); MCHC 31.5 % (32.0-36.0); MCV 102.3 fL (80-95); MPV 8.8 fL (8.0-11.0); Monocytes % 12.9; Neutrophils % 76.8; Platelet Count 262 10^3/uL (130-400); RBC 3.47 10^6/uL (4.36-5.78); RDW 13.5 % (11.8-14.1); RDW-SD 50.9 fL; WBC 5.35 10^3/uL (4.4-10.8)
[2021-09-29 14:36] LABS: ALT 16 U/L (16-63); AST 13 U/L (15-37); Albumin 3.9 g/dL (3.4-5.0); Alkaline Phosphatase 73 U/L (46-116); Anion Gap 3.5 mmol/L (3-11); BUN 24 mg/dL (7-18); Bilirubin, Total 0.5 mg/dL (0.2-1.0); CO2 31.5 mmol/L (21.0-32.0); Calcium 9.4 mg/dL (8.5-10.1); Chloride 105 mmol/L (98-107); Glucose 113 mg/dL (74-106); Potassium 4.5 mmol/L (3.5-5.1); Sodium 140 mmol/L (136-145)
[2021-09-30 10:21] LABS: IgA <13 mg/dL (85-499); IgG 269 mg/dL (610-1,616); IgM <12 mg/dL (35-242)
[2021-09-30 15:23] LABS: Albumin 65.7 % (55.8-66.1); Albumin g/dL 3.9 g/dL (3.6-5.2); Comment (See Note); Total Protein 5.9 g/dL (6.3-8.2)
== END 2021-09-29 04:43 | disposition home or self-care (01) ==
LOC: LBO 04:42
PROVIDERS: PCP Internal Medicine; Visit Provider Internal Medicine Hematology & Oncology
DX: C90.02 Multiple myeloma in relapse (principal)
CPT/HCPCS: 36415; 80053; 82784; 84165; 85025

== ENCOUNTER 2021-10-27 04:16 | Outpatient (CLI) | payer BC, SELFPAY ==
[2021-10-27 12:21] LABS: Abs Immature Grans 0.01 10^3/uL (0.0-0.06); Absolute Basophil Count 0.01 10^3/uL (0.0-0.2); Absolute Eosinophil Count 0.02 10^3/uL (0.0-0.7); Absolute Lymphocyte Count 0.62 10^3/uL (1.2-3.4); Absolute Monocyte Count 0.92 10^3/uL (0.1-0.8); Absolute Neutrophil Count 4.46 10^3/uL (1.2-6.7); Basophils % 0.2; Eosinophils % 0.3; HCT 33.7 % (40.0-50.0); HGB 10.7 g/dL (13.5-17.5); Immature Grans % 0.2; Lymphocytes % 10.3; MCH 31.9 pg (27.0-33.0); MCHC 31.8 % (32.0-36.0); MCV 101 fL (80-95); MPV 8.5 fL (8.0-11.0); Monocytes % 15.2; Neutrophils % 73.8; Platelet Count 270 10^3/uL (130-400); RBC 3.35 10^6/uL (4.36-5.78); RDW 13.2 % (11.8-14.1); RDW-SD 48.7 fL; WBC 6.04 10^3/uL (4.4-10.8)
[2021-10-27 13:51] LABS: ALT 15 U/L (16-63); AST 12 U/L (15-37); Albumin 3.9 g/dL (3.4-5.0); Alkaline Phosphatase 76 U/L (46-116); Anion Gap 8.2 mmol/L (3-11); BUN 25 mg/dL (7-18); Bilirubin, Total 0.5 mg/dL (0.2-1.0); CO2 27.8 mmol/L (21.0-32.0); Calcium 9.1 mg/dL (8.5-10.1); Chloride 105 mmol/L (98-107); Glucose 96 mg/dL (74-106); Potassium 4.8 mmol/L (3.5-5.1); Sodium 141 mmol/L (136-145); Total Protein 5.9 g/dL (6.4-8.2)
[2021-10-28 10:24] LABS: IgA <13 mg/dL (85-499); IgG 266 mg/dL (610-1,616); IgM <12 mg/dL (35-242)
[2021-10-28 14:16] LABS: Albumin 63.7 % (55.8-66.1); Albumin g/dL 3.7 g/dL (3.6-5.2); Comment (See Note); Total Protein 5.8 g/dL (6.3-8.2)
[2021-10-28 15:37] LABS: Immunotyping, Serum (See Note)
== END 2021-10-27 04:17 | disposition home or self-care (01) ==
LOC: LBO 04:16
PROVIDERS: PCP Internal Medicine; Visit Provider Internal Medicine Hematology & Oncology
DX: C90.02 Multiple myeloma in relapse (principal)
CPT/HCPCS: 36415; 80053; 82784; 84165; 85025; 86320

== ENCOUNTER 2021-11-24 02:03 | Outpatient (CLI) | payer BC, SELFPAY ==
[2021-11-24 12:26] LABS: Abs Immature Grans 0.01 10^3/uL (0.0-0.06); Absolute Basophil Count 0.01 10^3/uL (0.0-0.2); Absolute Eosinophil Count 0.01 10^3/uL (0.0-0.7); Absolute Lymphocyte Count 0.51 10^3/uL (1.2-3.4); Absolute Monocyte Count 0.72 10^3/uL (0.1-0.8); Absolute Neutrophil Count 4.95 10^3/uL (1.2-6.7); Basophils % 0.2; Eosinophils % 0.2; HCT 34.1 % (40.0-50.0); HGB 10.7 g/dL (13.5-17.5); Immature Grans % 0.2; Lymphocytes % 8.2; MCH 31.6 pg (27.0-33.0); MCHC 31.4 % (32.0-36.0); MCV 101 fL (80-95); MPV 8.6 fL (8.0-11.0); Monocytes % 11.6; Neutrophils % 79.6; Platelet Count 260 10^3/uL (130-400); RBC 3.39 10^6/uL (4.36-5.78); RDW 13.2 % (11.8-14.1); RDW-SD 49.3 fL; WBC 6.21 10^3/uL (4.4-10.8)
[2021-11-24 12:43] LABS: ALT 11 U/L (16-63); AST 9 U/L (15-37); Albumin 3.4 g/dL (3.4-5.0); Alkaline Phosphatase 66 U/L (46-116); Anion Gap 5.8 mmol/L (3-11); BUN 20 mg/dL (7-18); Bilirubin, Total 0.5 mg/dL (0.2-1.0); CO2 28.2 mmol/L (21.0-32.0); CREATININE 0.9 mg/dL (0.70-1.30); Calcium 8.9 mg/dL (8.5-10.1); Chloride 103 mmol/L (98-107); Glucose 102 mg/dL (74-106); Potassium 3.9 mmol/L (3.5-5.1); Sodium 137 mmol/L (136-145); Total Protein 6.4 g/dL (6.4-8.2)
[2021-11-25 10:43] LABS: IgA <13 mg/dL (85-499); IgG 267 mg/dL (610-1,616); IgM <12 mg/dL (35-242); Kappa Free Light Chain 22.41 mg/dL (0.33-1.94); Lambda Free Light Chain <0.44 mg/dL (0.57-2.63)
[2021-11-25 13:26] LABS: Albumin g/dL 3.7 g/dL (3.6-5.2); Comment (See Note); Total Protein 5.8 g/dL (6.3-8.2)
== END 2021-11-24 02:04 | disposition home or self-care (01) ==
LOC: LBO 02:03
PROVIDERS: PCP Internal Medicine; Visit Provider Internal Medicine Hematology & Oncology
DX: C90.02 Multiple myeloma in relapse (principal)
CPT/HCPCS: 36415; 80053; 82784; 83883; 84165; 85025

== ENCOUNTER 2022-01-12 20:03 | Outpatient (REF) | payer MEDICARE, BC, SELFPAY ==
[2022-01-12 14:13] LABS: Abs Immature Grans 0.04 10^3/uL (0.0-0.06); Absolute Basophil Count 0.01 10^3/uL (0.0-0.2); Absolute Eosinophil Count 0.04 10^3/uL (0.0-0.7); Absolute Lymphocyte Count 0.38 10^3/uL (1.2-3.4); Absolute Neutrophil Count 4.21 10^3/uL (1.2-6.7); Basophils % 0.2; Eosinophils % 0.7; HCT 34.6 % (40.0-50.0); HGB 11.2 g/dL (13.5-17.5); Immature Grans % 0.7; Lymphocytes % 6.3; MCH 32.2 pg (27.0-33.0); MCHC 32.4 % (32.0-36.0); MCV 99 fL (80-95); MPV 10.4 fL (8.0-11.0); Neutrophils % 69.1; RBC 3.48 10^6/uL (4.36-5.78); RDW 13.3 % (11.8-14.1); RDW-SD 49.1 fL; WBC 6.08 10^3/uL (4.4-10.8)
[2022-01-12 14:29] LABS: Platelet Count 91 10^3/uL (130-400)
== END 2022-01-12 20:04 | disposition home or self-care (01) ==
LOC: LBN 20:03
PROVIDERS: PCP Internal Medicine; Visit Provider Internal Medicine Hematology & Oncology
DX: C90.02 Multiple myeloma in relapse (principal)
CPT/HCPCS: 85025

== ENCOUNTER 2022-02-09 11:30 | Outpatient (CLI) | payer MEDICARE, BC, SELFPAY ==
[2022-02-09 11:34] LABS: Abs Immature Grans 0.02 10^3/uL (0.0-0.06); Absolute Basophil Count 0.04 10^3/uL (0.0-0.2); Absolute Eosinophil Count 0.01 10^3/uL (0.0-0.7); Absolute Lymphocyte Count 0.84 10^3/uL (1.2-3.4); Absolute Monocyte Count 0.87 10^3/uL (0.1-0.8); Absolute Neutrophil Count 6.07 10^3/uL (1.2-6.7); Basophils % 0.5; Eosinophils % 0.1; HCT 36.3 % (40.0-50.0); HGB 11.5 g/dL (13.5-17.5); Immature Grans % 0.3; Lymphocytes % 10.7; MCH 32.3 pg (27.0-33.0); MCHC 31.7 % (32.0-36.0); MCV 102 fL (80-95); Monocytes % 11.1; Neutrophils % 77.3; Platelet Count 362 10^3/uL (130-400); RBC 3.56 10^6/uL (4.36-5.78); RDW 14.1 % (11.8-14.1); RDW-SD 53.4 fL; WBC 7.85 10^3/uL (4.4-10.8)
[2022-02-09 11:54] LABS: ALT 15 U/L (16-63); AST 12 U/L (15-37); Albumin 3.7 g/dL (3.4-5.0); Alkaline Phosphatase 61 U/L (46-116); Anion Gap 4.6 mmol/L (3-11); BUN 15 mg/dL (7-18); Bilirubin, Total 0.5 mg/dL (0.2-1.0); CO2 32.4 mmol/L (21.0-32.0); CREATININE 0.9 mg/dL (0.70-1.30); Calcium 9.3 mg/dL (8.5-10.1); Chloride 103 mmol/L (98-107); Estimated GFR 93.03 (mL/min/1.73m2); Glucose 107 mg/dL (74-106); Sodium 140 mmol/L (136-145); Total Protein 6.7 g/dL (6.4-8.2)
[2022-02-10 11:41] LABS: IgA 22 mg/dL (85-499); IgG 353 mg/dL (610-1,616); IgM <12 mg/dL (35-242); Kappa Free Light Chain 1.18 mg/dL (0.33-1.94); Lambda Free Light Chain <0.44 mg/dL (0.57-2.63)
[2022-02-10 14:55] LABS: Albumin 65.3 % (55.8-66.1); Comment (See Note); Total Protein 6.1 g/dL (6.3-8.2)
== END 2022-02-09 11:31 | disposition home or self-care (01) ==
LOC: LBO 11:34
PROVIDERS: PCP Internal Medicine; Visit Provider Internal Medicine Hematology & Oncology
DX: C90.02 Multiple myeloma in relapse (principal)
CPT/HCPCS: 36415; 80053; 82784; 83883; 84165; 85025

== ENCOUNTER 2022-02-23 03:34 | Outpatient (CLI) | payer MEDICARE, BC, SELFPAY ==
[2022-02-23 11:44] LABS: Abs Immature Grans 0.02 10^3/uL (0.0-0.06); Absolute Basophil Count 0.02 10^3/uL (0.0-0.2); Absolute Eosinophil Count 0.06 10^3/uL (0.0-0.7); Absolute Lymphocyte Count 0.75 10^3/uL (1.2-3.4); Absolute Monocyte Count 0.67 10^3/uL (0.1-0.8); Absolute Neutrophil Count 2.44 10^3/uL (1.2-6.7); Basophils % 0.5; Eosinophils % 1.5; HCT 35.2 % (40.0-50.0); Immature Grans % 0.5; Lymphocytes % 18.9; MCH 32.1 pg (27.0-33.0); MCHC 31.3 % (32.0-36.0); MCV 103 fL (80-95); MPV 9.1 fL (8.0-11.0); Monocytes % 16.9; Neutrophils % 61.7; Platelet Count 159 10^3/uL (130-400); RBC 3.43 10^6/uL (4.36-5.78); RDW 13.2 % (11.8-14.1); RDW-SD 50.4 fL; WBC 3.96 10^3/uL (4.4-10.8)
[2022-02-23 11:58] LABS: ALT 12 U/L (16-63); AST 13 U/L (15-37); Albumin 3.7 g/dL (3.4-5.0); Alkaline Phosphatase 61 U/L (46-116); Anion Gap 4.1 mmol/L (3-11); BUN 16 mg/dL (7-18); Bilirubin, Total 0.5 mg/dL (0.2-1.0); CO2 31.9 mmol/L (21.0-32.0); CREATININE 0.8 mg/dL (0.70-1.30); Calcium 9.2 mg/dL (8.5-10.1); Chloride 103 mmol/L (98-107); Glucose 100 mg/dL (74-106); Potassium 4.2 mmol/L (3.5-5.1); Sodium 139 mmol/L (136-145); Total Protein 6.4 g/dL (6.4-8.2)
[2022-02-24 10:05] LABS: IgA 18 mg/dL (85-499); IgG 290 mg/dL (610-1,616); IgM <12 mg/dL (35-242); Kappa Free Light Chain 1.63 mg/dL (0.33-1.94); Lambda Free Light Chain <0.44 mg/dL (0.57-2.63)
[2022-02-24 14:12] LABS: Albumin 68.8 % (55.8-66.1); Comment (See Note); Total Protein 5.8 g/dL (6.3-8.2)
== END 2022-02-23 03:35 | disposition home or self-care (01) ==
LOC: LBO 03:34
PROVIDERS: PCP Internal Medicine; Visit Provider Internal Medicine Hematology & Oncology
DX: C90.02 Multiple myeloma in relapse (principal)
CPT/HCPCS: 36415; 80053; 82784; 83883; 84165; 85025

== ENCOUNTER 2022-03-23 02:39 | Outpatient (CLI) | payer MEDICARE, BC, SELFPAY ==
[2022-03-23 07:53] LABS: Abs Immature Grans 0.01 10^3/uL (0.0-0.06); Absolute Basophil Count 0.04 10^3/uL (0.0-0.2); Absolute Eosinophil Count 0.01 10^3/uL (0.0-0.7); Absolute Lymphocyte Count 0.46 10^3/uL (1.2-3.4); Absolute Monocyte Count 1.19 10^3/uL (0.1-0.8); Absolute Neutrophil Count 1.49 10^3/uL (1.2-6.7); Basophils % 1.3; Eosinophils % 0.3; HCT 32.7 % (40.0-50.0); HGB 10.4 g/dL (13.5-17.5); Immature Grans % 0.3; Lymphocytes % 14.4; MCH 32.2 pg (27.0-33.0); MCHC 31.8 % (32.0-36.0); MCV 101 fL (80-95); MPV 9.2 fL (8.0-11.0); Monocytes % 37.2; Neutrophils % 46.5; Platelet Count 248 10^3/uL (130-400); RBC 3.23 10^6/uL (4.36-5.78); RDW 14.3 % (11.8-14.1); RDW-SD 52.1 fL
[2022-03-23 08:08] LABS: ALT 13 U/L (16-63); AST 9 U/L (15-37); Albumin 3.5 g/dL (3.4-5.0); Alkaline Phosphatase 50 U/L (46-116); Anion Gap 5.1 mmol/L (3-11); BUN 15 mg/dL (7-18); Bilirubin, Total 0.6 mg/dL (0.2-1.0); CO2 29.9 mmol/L (21.0-32.0); CREATININE 0.8 mg/dL (0.70-1.30); Calcium 9.1 mg/dL (8.5-10.1); Chloride 108 mmol/L (98-107); Glucose 96 mg/dL (74-106); Potassium 3.8 mmol/L (3.5-5.1); Sodium 143 mmol/L (136-145); Total Protein 6.1 g/dL (6.4-8.2)
[2022-03-24 09:28] LABS: IgA <13 mg/dL (85-499); IgG 320 mg/dL (610-1,616); IgM <12 mg/dL (35-242); Lambda Free Light Chain <0.44 mg/dL (0.57-2.63)
[2022-03-24 12:43] LABS: Albumin 66.9 % (55.8-66.1); Albumin g/dL 3.5 g/dL (3.6-5.2); Comment (See Note); Monoclonal Spike 1.5 % (None Seen); Monoclonal Spike g/dL 0.1 g/dL (None Seen); Total Protein 5.2 g/dL (6.3-8.2)
== END 2022-03-23 02:40 | disposition home or self-care (01) ==
PROVIDERS: Internal Medicine Medical Oncology; PCP Internal Medicine; Visit Provider Internal Medicine Hematology & Oncology
DX: C90.02 Multiple myeloma in relapse (principal)
CPT/HCPCS: 36415; 80053; 82784; 83883; 84165; 85025

== ENCOUNTER 2022-04-06 04:05 | Outpatient (CLI) | payer MEDICARE, BC, SELFPAY ==
[2022-04-06 11:53] LABS: Abs Immature Grans 0.06 10^3/uL (0.0-0.06); Absolute Basophil Count 0.01 10^3/uL (0.0-0.2); Absolute Eosinophil Count 0.13 10^3/uL (0.0-0.7); Absolute Lymphocyte Count 0.34 10^3/uL (1.2-3.4); Absolute Monocyte Count 1.84 10^3/uL (0.1-0.8); Absolute Neutrophil Count 3.46 10^3/uL (1.2-6.7); Basophils % 0.2; Eosinophils % 2.2; HCT 33.5 % (40.0-50.0); HGB 10.6 g/dL (13.5-17.5); Lymphocytes % 5.8; MCH 32.2 pg (27.0-33.0); MCHC 31.6 % (32.0-36.0); MCV 102 fL (80-95); MPV 10.2 fL (8.0-11.0); Monocytes % 31.5; Neutrophils % 59.3; Platelet Count 117 10^3/uL (130-400); RBC 3.29 10^6/uL (4.36-5.78); RDW 14.2 % (11.8-14.1); RDW-SD 53.5 fL; WBC 5.84 10^3/uL (4.4-10.8)
[2022-04-06 12:06] LABS: Diff Comment Agrees w/ Instrument; RBC Morphology Normal
[2022-04-06 12:12] LABS: ALT 9 U/L (16-63); AST < 5 U/L (15-37); Albumin 3.5 g/dL (3.4-5.0); Alkaline Phosphatase 53 U/L (46-116); Anion Gap 2.6 mmol/L (3-11); BUN 23 mg/dL (7-18); Bilirubin, Total 0.6 mg/dL (0.2-1.0); CO2 29.4 mmol/L (21.0-32.0); CREATININE 0.9 mg/dL (0.70-1.30); Chloride 107 mmol/L (98-107); Estimated GFR 93.03 (mL/min/1.73m2); Glucose 94 mg/dL (74-106); Potassium 4.1 mmol/L (3.5-5.1); Sodium 139 mmol/L (136-145); Total Protein 6.1 g/dL (6.4-8.2)
[2022-04-07 10:35] LABS: IgA <13 mg/dL (85-499); IgG 328 mg/dL (610-1,616); IgM <12 mg/dL (35-242); Kappa Free Light Chain 0.39 mg/dL (0.33-1.94); Lambda Free Light Chain <0.44 mg/dL (0.57-2.63)
[2022-04-07 15:19] LABS: Albumin 67.4 % (55.8-66.1); Albumin g/dL 3.6 g/dL (3.6-5.2); Comment (See Note); Monoclonal Spike 1.3 % (None Seen); Monoclonal Spike g/dL 0.1 g/dL (None Seen); Total Protein 5.3 g/dL (6.3-8.2)
== END 2022-04-06 04:06 | disposition home or self-care (01) ==
LOC: LBO 04:05
PROVIDERS: PCP Internal Medicine; Visit Provider Internal Medicine Hematology & Oncology
DX: C90.02 Multiple myeloma in relapse (principal)
CPT/HCPCS: 36415; 80053; 82784; 83883; 84165; 85025

== ENCOUNTER 2022-04-20 02:53 | Outpatient (CLI) | payer MEDICARE, BC, SELFPAY ==
[2022-04-20 08:12] LABS: Abs Immature Grans 0.01 10^3/uL (0.0-0.06); Absolute Basophil Count 0.02 10^3/uL (0.0-0.2); Absolute Eosinophil Count 0.01 10^3/uL (0.0-0.7); Absolute Lymphocyte Count 0.34 10^3/uL (1.2-3.4); Absolute Monocyte Count 0.98 10^3/uL (0.1-0.8); Absolute Neutrophil Count 1.29 10^3/uL (1.2-6.7); Basophils % 0.8; Eosinophils % 0.4; HCT 32.7 % (40.0-50.0); HGB 10.3 g/dL (13.5-17.5); Immature Grans % 0.4; Lymphocytes % 12.8; MCH 32.7 pg (27.0-33.0); MCHC 31.5 % (32.0-36.0); MCV 104 fL (80-95); MPV 9.2 fL (8.0-11.0); Neutrophils % 48.6; Platelet Count 215 10^3/uL (130-400); RBC 3.15 10^6/uL (4.36-5.78); RDW 15.5 % (11.8-14.1); RDW-SD 58.8 fL; WBC 2.65 10^3/uL (4.4-10.8)
[2022-04-20 08:41] LABS: ALT 12 U/L (16-63); AST 12 U/L (15-37); Albumin 3.6 g/dL (3.4-5.0); Alkaline Phosphatase 47 U/L (46-116); Anion Gap 5.3 mmol/L (3-11); BUN 19 mg/dL (7-18); Bilirubin, Total 0.5 mg/dL (0.2-1.0); CO2 28.7 mmol/L (21.0-32.0); CREATININE 0.7 mg/dL (0.70-1.30); Chloride 107 mmol/L (98-107); Estimated GFR 100.37 (mL/min/1.73m2); Glucose 111 mg/dL (74-106); Sodium 141 mmol/L (136-145); Total Protein 6.1 g/dL (6.4-8.2)
[2022-04-21 09:29] LABS: IgA <13 mg/dL (85-499); IgG 298 mg/dL (610-1616); IgM <12 mg/dL (35-242); Kappa Free Light Chain 0.41 mg/dL (0.33-1.94); Lambda Free Light Chain <0.44 mg/dL (0.57-2.63)
[2022-04-21 15:56] LABS: Albumin g/dL 3.6 g/dL (3.6-5.2); Comment (See Note); Monoclonal Spike 1.9 % (None Seen); Monoclonal Spike g/dL 0.1 g/dL (None Seen); Total Protein 5.4 g/dL (6.3-8.2)
== END 2022-04-20 02:54 | disposition home or self-care (01) ==
LOC: LBO 02:53
PROVIDERS: PCP Internal Medicine; Visit Provider Internal Medicine Hematology & Oncology
DX: C90.02 Multiple myeloma in relapse (principal)
CPT/HCPCS: 36415; 80053; 82784; 83883; 84165; 85025

== ENCOUNTER 2022-05-04 03:39 | Outpatient (CLI) | payer MEDICARE, BC, SELFPAY ==
[2022-05-04 09:29] LABS: Abs Immature Grans 0.05 10^3/uL (0.0-0.06); Absolute Basophil Count 0.02 10^3/uL (0.0-0.2); Absolute Eosinophil Count 0.06 10^3/uL (0.0-0.7); Absolute Lymphocyte Count 0.13 10^3/uL (1.2-3.4); Absolute Monocyte Count 1.12 10^3/uL (0.1-0.8); Absolute Neutrophil Count 4.03 10^3/uL (1.2-6.7); Basophils % 0.4; Eosinophils % 1.1; HCT 34.3 % (40.0-50.0); HGB 11.1 g/dL (13.5-17.5); Immature Grans % 0.9; Lymphocytes % 2.4; MCHC 32.4 % (32.0-36.0); MCV 102 fL (80-95); MPV 10.1 fL (8.0-11.0); Monocytes % 20.7; Neutrophils % 74.5; RBC 3.36 10^6/uL (4.36-5.78); RDW 15.8 % (11.8-14.1); RDW-SD 59.3 fL; WBC 5.41 10^3/uL (4.4-10.8)
[2022-05-04 09:47] LABS: Platelet Count 90 10^3/uL (130-400)
[2022-05-04 11:11] LABS: ALT 12 U/L (16-63); AST 15 U/L (15-37); Albumin 3.5 g/dL (3.4-5.0); Alkaline Phosphatase 53 U/L (46-116); Anion Gap 8.5 mmol/L (3-11); BUN 32 mg/dL (7-18); Bilirubin, Total 0.8 mg/dL (0.2-1.0); CO2 26.5 mmol/L (21.0-32.0); Calcium 9.1 mg/dL (8.5-10.1); Chloride 105 mmol/L (98-107); Estimated GFR 81.98 (mL/min/1.73m2); Glucose 115 mg/dL (74-106); Potassium 3.5 mmol/L (3.5-5.1); Sodium 140 mmol/L (136-145); Total Protein 6.3 g/dL (6.4-8.2)
[2022-05-05 10:00] LABS: IgA <13 mg/dL (85-499); IgG 292 mg/dL (610-1616); IgM <12 mg/dL (35-242); Kappa Free Light Chain 0.34 mg/dL (0.33-1.94); Lambda Free Light Chain <0.44 mg/dL (0.57-2.63)
[2022-05-05 14:32] LABS: Albumin 63.3 % (55.8-66.1); Albumin g/dL 3.6 g/dL (3.6-5.2); Comment (See Note); Monoclonal Spike 1.4 % (None Seen); Monoclonal Spike g/dL 0.1 g/dL (None Seen); Total Protein 5.7 g/dL (6.3-8.2)
== END 2022-05-04 03:40 | disposition home or self-care (01) ==
PROVIDERS: PCP Internal Medicine; Visit Provider Internal Medicine Hematology & Oncology
DX: C90.02 Multiple myeloma in relapse (principal)
CPT/HCPCS: 36415; 80053; 82784; 83883; 84165; 85025

== ENCOUNTER 2022-05-16 14:49 | Outpatient (CLI) | payer MEDICARE, BC, SELFPAY ==
[2022-05-16 14:33] LABS: Abs Immature Grans 0.05 10^3/uL (0.0-0.06); Absolute Basophil Count 0.03 10^3/uL (0.0-0.2); Absolute Eosinophil Count 0.06 10^3/uL (0.0-0.7); Absolute Lymphocyte Count 0.36 10^3/uL (1.2-3.4); Absolute Monocyte Count 0.74 10^3/uL (0.1-0.8); Absolute Neutrophil Count 3.34 10^3/uL (1.2-6.7); Basophils % 0.7; Eosinophils % 1.3; HCT 33.1 % (40.0-50.0); HGB 10.3 g/dL (13.5-17.5); Immature Grans % 1.1; Lymphocytes % 7.9; MCH 32.4 pg (27.0-33.0); MCHC 31.1 % (32.0-36.0); MCV 104 fL (80-95); MPV 9.1 fL (8.0-11.0); Monocytes % 16.2; Neutrophils % 72.8; Platelet Count 343 10^3/uL (130-400); RBC 3.18 10^6/uL (4.36-5.78); RDW 15.3 % (11.8-14.1); RDW-SD 59.4 fL; WBC 4.58 10^3/uL (4.4-10.8)
[2022-05-16 14:50] LABS: ALT 14 U/L (16-63); AST 10 U/L (15-37); Albumin 3.1 g/dL (3.4-5.0); Alkaline Phosphatase 72 U/L (46-116); Anion Gap 6.4 mmol/L (3-11); BUN 28 mg/dL (7-18); Bilirubin, Total 0.7 mg/dL (0.2-1.0); CO2 31.6 mmol/L (21.0-32.0); CREATININE 0.9 mg/dL (0.70-1.30); Calcium 9.4 mg/dL (8.5-10.1); Chloride 101 mmol/L (98-107); Estimated GFR 93.03 (mL/min/1.73m2); Glucose 115 mg/dL (74-106); Potassium 3.8 mmol/L (3.5-5.1); Sodium 139 mmol/L (136-145); Total Protein 6.2 g/dL (6.4-8.2)
[2022-05-17 10:39] LABS: IgA 15 mg/dL (85-499); IgG 326 mg/dL (610-1616); IgM <12 mg/dL (35-242); Kappa Free Light Chain 0.52 mg/dL (0.33-1.94); Lambda Free Light Chain <0.44 mg/dL (0.57-2.63)
[2022-05-17 13:16] LABS: Albumin 59.6 % (55.8-66.1); Albumin g/dL 3.3 g/dL (3.6-5.2); Comment (See Note); Total Protein 5.6 g/dL (6.3-8.2)
== END 2022-05-16 14:50 | disposition home or self-care (01) ==
LOC: LBO 14:50
PROVIDERS: PCP Internal Medicine; Visit Provider Internal Medicine Hematology & Oncology
DX: C90.02 Multiple myeloma in relapse (principal)
CPT/HCPCS: 36415; 80053; 82784; 83883; 84165; 85025

== ENCOUNTER 2022-06-14 19:49 | Outpatient (CLI) | payer MEDICARE, BC, SELFPAY ==
[2022-06-14 16:25] LABS: Abs Immature Grans 0.01 10^3/uL (0.0-0.06); Absolute Basophil Count 0.04 10^3/uL (0.0-0.2); Absolute Eosinophil Count 0.13 10^3/uL (0.0-0.7); Absolute Lymphocyte Count 0.77 10^3/uL (1.2-3.4); Absolute Monocyte Count 0.98 10^3/uL (0.1-0.8); Absolute Neutrophil Count 1.68 10^3/uL (1.2-6.7); Basophils % 1.1; Eosinophils % 3.6; HGB 9.9 g/dL (13.5-17.5); Immature Grans % 0.3; Lymphocytes % 21.3; MCH 34.4 pg (27.0-33.0); MCHC 30.9 % (32.0-36.0); MCV 111 fL (80-95); MPV 8.7 fL (8.0-11.0); Monocytes % 27.1; Neutrophils % 46.6; Platelet Count 239 10^3/uL (130-400); RBC 2.88 10^6/uL (4.36-5.78); RDW 16.4 % (11.8-14.1); RDW-SD 68.6 fL; WBC 3.61 10^3/uL (4.4-10.8)
[2022-06-14 17:11] LABS: ALT 14 U/L (16-63); AST 13 U/L (15-37); Albumin 3.5 g/dL (3.4-5.0); Alkaline Phosphatase 61 U/L (46-116); Anion Gap 5.9 mmol/L (3-11); BUN 23 mg/dL (7-18); Bilirubin, Total 0.4 mg/dL (0.2-1.0); CO2 28.1 mmol/L (21.0-32.0); CREATININE 0.7 mg/dL (0.70-1.30); Calcium 8.8 mg/dL (8.5-10.1); Chloride 105 mmol/L (98-107); Estimated GFR 99.74 (mL/min/1.73m2); Glucose 92 mg/dL (74-106); Sodium 139 mmol/L (136-145); Total Protein 6.2 g/dL (6.4-8.2)
[2022-06-16 10:12] LABS: IgA <13 mg/dL (85-499); IgG 308 mg/dL (610-1616); IgM <12 mg/dL (35-242); Kappa Free Light Chain 0.33 mg/dL (0.33-1.94); Lambda Free Light Chain <0.44 mg/dL (0.57-2.63)
[2022-06-16 13:32] LABS: Albumin 66.1 % (55.8-66.1); Albumin g/dL 3.8 g/dL (3.6-5.2); Comment (See Note); Total Protein 5.7 g/dL (6.3-8.2)
== END 2022-06-14 19:50 | disposition home or self-care (01) ==
LOC: LBO 19:50
PROVIDERS: PCP Internal Medicine; Visit Provider Internal Medicine Hematology & Oncology
DX: C90.02 Multiple myeloma in relapse (principal)
CPT/HCPCS: 36415; 80053; 82784; 83883; 84165; 85025

== ENCOUNTER 2022-07-13 04:19 | Outpatient (CLI) | payer MEDICARE, BC, SELFPAY ==
[2022-07-13 10:31] LABS: Abs Immature Grans 0.03 10^3/uL (0.0-0.06); Absolute Basophil Count 0.05 10^3/uL (0.0-0.2); Absolute Lymphocyte Count 0.69 10^3/uL (1.2-3.4); Absolute Monocyte Count 0.87 10^3/uL (0.1-0.8); Absolute Neutrophil Count 3.94 10^3/uL (1.2-6.7); Basophils % 0.9; Eosinophils % 1.8; HCT 37.9 % (40.0-50.0); HGB 11.8 g/dL (13.5-17.5); Immature Grans % 0.5; Lymphocytes % 12.1; MCH 32.2 pg (27.0-33.0); MCHC 31.1 % (32.0-36.0); MCV 103 fL (80-95); MPV 9.8 fL (8.0-11.0); Monocytes % 15.3; Neutrophils % 69.4; Platelet Count 339 10^3/uL (130-400); RBC 3.67 10^6/uL (4.36-5.78); RDW 15.2 % (11.8-14.1); RDW-SD 58.3 fL; WBC 5.68 10^3/uL (4.4-10.8)
[2022-07-13 10:51] LABS: ALT 9 U/L (16-63); AST 10 U/L (15-37); Albumin 3.5 g/dL (3.4-5.0); Alkaline Phosphatase 90 U/L (46-116); Anion Gap 3.3 mmol/L (3-11); BUN 29 mg/dL (7-18); Bilirubin, Total 0.6 mg/dL (0.2-1.0); CO2 33.7 mmol/L (21.0-32.0); Calcium 9.7 mg/dL (8.5-10.1); Chloride 101 mmol/L (98-107); Estimated GFR 81.47 (mL/min/1.73m2); Glucose 120 mg/dL (74-106); Potassium 4.1 mmol/L (3.5-5.1); Sodium 138 mmol/L (136-145); Total Protein 6.5 g/dL (6.4-8.2)
[2022-07-14 10:54] LABS: IgA 31 mg/dL (85-499); IgG 332 mg/dL (610-1616); IgM 12 mg/dL (35-242); Kappa Free Light Chain 0.67 mg/dL (0.33-1.94); Lambda Free Light Chain <0.44 mg/dL (0.57-2.63)
[2022-07-14 13:51] LABS: Albumin 60.2 % (55.8-66.1); Albumin g/dL 3.6 g/dL (3.6-5.2); Comment (See Note); Total Protein 5.9 g/dL (6.3-8.2)
== END 2022-07-13 04:20 | disposition home or self-care (01) ==
LOC: LBO 04:20
PROVIDERS: PCP Internal Medicine; Visit Provider Internal Medicine Hematology & Oncology
DX: C90.02 Multiple myeloma in relapse (principal)
CPT/HCPCS: 36415; 80053; 82784; 83883; 84165; 85025

== ENCOUNTER 2022-08-10 02:49 | Outpatient (CLI) | payer MEDICARE, SELFPAY ==
[2022-08-10 10:18] LABS: Absolute Basophil Count 0.04 10^3/uL (0.0-0.2); Absolute Eosinophil Count 0.01 10^3/uL (0.0-0.7); Absolute Lymphocyte Count 0.43 10^3/uL (1.2-3.4); Absolute Monocyte Count 0.95 10^3/uL (0.1-0.8); Absolute Neutrophil Count 1.37 10^3/uL (1.2-6.7); Basophils % 1.4; Eosinophils % 0.4; HCT 33.9 % (40.0-50.0); HGB 10.7 g/dL (13.5-17.5); Lymphocytes % 15.4; MCH 32.3 pg (27.0-33.0); MCHC 31.6 % (32.0-36.0); MCV 102 fL (80-95); MPV 9.2 fL (8.0-11.0); Monocytes % 33.9; Neutrophils % 48.9; Platelet Count 186 10^3/uL (130-400); RBC 3.31 10^6/uL (4.36-5.78); RDW 16.7 % (11.8-14.1)
[2022-08-10 10:38] LABS: ALT 12 U/L (16-63); AST 6 U/L (15-37); Albumin 3.4 g/dL (3.4-5.0); Alkaline Phosphatase 78 U/L (46-116); Anion Gap 6.3 mmol/L (3-11); BUN 22 mg/dL (7-18); Bilirubin, Total 0.5 mg/dL (0.2-1.0); CO2 29.7 mmol/L (21.0-32.0); CREATININE 0.9 mg/dL (0.70-1.30); Calcium 9.3 mg/dL (8.5-10.1); Chloride 107 mmol/L (98-107); Estimated GFR 92.45 (mL/min/1.73m2); Glucose 105 mg/dL (74-106); Potassium 4.2 mmol/L (3.5-5.1); Sodium 143 mmol/L (136-145)
[2022-08-11 10:25] LABS: IgA 18 mg/dL (85-499); IgG 299 mg/dL (610-1616); IgM <12 mg/dL (35-242); Kappa Free Light Chain 0.49 mg/dL (0.33-1.94); Lambda Free Light Chain <0.44 mg/dL (0.57-2.63)
[2022-08-11 14:27] LABS: Albumin 64.4 % (55.8-66.1); Albumin g/dL 3.6 g/dL (3.6-5.2); Comment (See Note); Monoclonal Spike 1.7 % (None Seen); Monoclonal Spike g/dL 0.1 g/dL (None Seen); Total Protein 5.6 g/dL (6.3-8.2)
== END 2022-08-10 02:50 | disposition home or self-care (01) ==
LOC: LBO 02:49
PROVIDERS: PCP Internal Medicine; Visit Provider Internal Medicine Hematology & Oncology
DX: C90.02 Multiple myeloma in relapse (principal)
CPT/HCPCS: 36415; 80053; 82784; 83883; 84165; 85025

== ENCOUNTER 2022-09-07 03:26 | Outpatient (CLI) | payer MEDICARE, SELFPAY ==
[2022-09-07 09:36] LABS: Abs Immature Grans 0.01 10^3/uL (0.0-0.06); Absolute Basophil Count 0.03 10^3/uL (0.0-0.2); Absolute Eosinophil Count 0.02 10^3/uL (0.0-0.7); Absolute Lymphocyte Count 0.55 10^3/uL (1.2-3.4); Absolute Monocyte Count 1.25 10^3/uL (0.1-0.8); Absolute Neutrophil Count 1.73 10^3/uL (1.2-6.7); Basophils % 0.8; Eosinophils % 0.6; HCT 33.9 % (40.0-50.0); HGB 10.6 g/dL (13.5-17.5); Immature Grans % 0.3; Lymphocytes % 15.3; MCH 32.1 pg (27.0-33.0); MCHC 31.3 % (32.0-36.0); MCV 103 fL (80-95); MPV 9.1 fL (8.0-11.0); Monocytes % 34.8; Neutrophils % 48.2; Platelet Count 185 10^3/uL (130-400); RDW 16.9 % (11.8-14.1); RDW-SD 64.7 fL; WBC 3.59 10^3/uL (4.4-10.8)
[2022-09-07 09:58] LABS: ALT 15 U/L (16-63); AST 9 U/L (15-37); Albumin 3.7 g/dL (3.4-5.0); Alkaline Phosphatase 70 U/L (46-116); Anion Gap 6.4 mmol/L (3-11); BUN 18 mg/dL (7-18); Bilirubin, Total 0.6 mg/dL (0.2-1.0); CO2 30.6 mmol/L (21.0-32.0); CREATININE 0.9 mg/dL (0.70-1.30); Calcium 9.3 mg/dL (8.5-10.1); Chloride 109 mmol/L (98-107); Estimated GFR 92.45 (mL/min/1.73m2); Glucose 101 mg/dL (74-106); Potassium 4.1 mmol/L (3.5-5.1); Sodium 146 mmol/L (136-145); Total Protein 6.2 g/dL (6.4-8.2)
[2022-09-08 10:05] LABS: IgA 14 mg/dL (85-499); IgG 308 mg/dL (610-1616); IgM <12 mg/dL (35-242); Kappa Free Light Chain 0.59 mg/dL (0.33-1.94); Lambda Free Light Chain <0.44 mg/dL (0.57-2.63)
[2022-09-08 12:45] LABS: Albumin 67.6 % (55.8-66.1); Albumin g/dL 3.9 g/dL (3.6-5.2); Comment (See Note); Monoclonal Spike 1.8 % (None Seen); Monoclonal Spike g/dL 0.1 g/dL (None Seen); Total Protein 5.8 g/dL (6.3-8.2)
== END 2022-09-07 03:27 | disposition home or self-care (01) ==
PROVIDERS: PCP Internal Medicine; Visit Provider Internal Medicine Hematology & Oncology
DX: C90.02 Multiple myeloma in relapse (principal)
CPT/HCPCS: 80053; 82784; 83883; 84165; 85025

== ENCOUNTER 2022-10-05 02:38 | Outpatient (CLI) | payer MEDICARE, BC, SELFPAY ==
[2022-10-05 10:18] LABS: Abs Immature Grans 0.01 10^3/uL (0.0-0.06); Absolute Basophil Count 0.02 10^3/uL (0.0-0.2); Absolute Eosinophil Count 0.03 10^3/uL (0.0-0.7); Absolute Lymphocyte Count 0.29 10^3/uL (1.2-3.4); Absolute Monocyte Count 0.99 10^3/uL (0.1-0.8); Absolute Neutrophil Count 2.17 10^3/uL (1.2-6.7); Basophils % 0.6; Eosinophils % 0.9; HCT 34.6 % (40.0-50.0); HGB 10.9 g/dL (13.5-17.5); Immature Grans % 0.3; Lymphocytes % 8.3; MCH 32.2 pg (27.0-33.0); MCHC 31.5 % (32.0-36.0); MCV 102 fL (80-95); MPV 9.1 fL (8.0-11.0); Monocytes % 28.2; Neutrophils % 61.7; Platelet Count 176 10^3/uL (130-400); RBC 3.39 10^6/uL (4.36-5.78); RDW 16.3 % (11.8-14.1); RDW-SD 61.4 fL; WBC 3.51 10^3/uL (4.4-10.8)
[2022-10-05 10:43] LABS: ALT 15 U/L (16-63); AST 10 U/L (15-37); Albumin 3.5 g/dL (3.4-5.0); Alkaline Phosphatase 68 U/L (46-116); Anion Gap 7.4 mmol/L (3-11); BUN 24 mg/dL (7-18); Bilirubin, Total 0.6 mg/dL (0.2-1.0); CO2 28.6 mmol/L (21.0-32.0); CREATININE 0.8 mg/dL (0.70-1.30); Calcium 9.1 mg/dL (8.5-10.1); Chloride 108 mmol/L (98-107); Glucose 100 mg/dL (74-106); Potassium 4.3 mmol/L (3.5-5.1); Sodium 144 mmol/L (136-145); Total Protein 6.1 g/dL (6.4-8.2)
[2022-10-06 10:18] LABS: IgA 16 mg/dL (85-499); IgG 355 mg/dL (610-1616); IgM <12 mg/dL (35-242); Kappa Free Light Chain 0.74 mg/dL (0.33-1.94); Lambda Free Light Chain <0.44 mg/dL (0.57-2.63)
[2022-10-06 13:24] LABS: Albumin 66.6 % (55.8-66.1); Albumin g/dL 3.8 g/dL (3.6-5.2); Comment (See Note); Total Protein 5.7 g/dL (6.3-8.2)
== END 2022-10-05 02:39 | disposition home or self-care (01) ==
LOC: LBO 02:38
PROVIDERS: PCP Internal Medicine; Visit Provider Internal Medicine Hematology & Oncology
DX: C90.02 Multiple myeloma in relapse (principal)
CPT/HCPCS: 36415; 80053; 82784; 83883; 84165; 85025

== ENCOUNTER 2022-10-19 00:53 | Outpatient (CLI) | payer MEDICARE, BC, SELFPAY ==
--- NOTE | 2022-10-19 13:00 | DI.CT_ITS ---
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 TECHNIQUE: Imaging Protocol: Axial computed tomography images with coronal and sagittal reformatted images were created and reviewed COMPARISON: CT,PT NM PET CT STANDARD PLUS EXTREMITIES AND HEAD from 04/18/2022 FINDINGS: CT Face: Facial Bones: There again seen destructive changes involving the anterior and bilateral anterolatera l aspects of the mandible. Compared to this PET CT scan from 04/18/2022, there does not appear to be any significant change. No other lytic or aggressive osseous lesions are identified. The maxilla a ppears unchanged. Sinuses and Mastoids: Unremarkable. Globes, extraocular muscles, optic nerves and retrobulbar fat: Normal. Upper aerodigestive tract: Normal. Mandible and bilateral temporomandibular joints: Normal. Soft tissues: Normal. IMPRESSION: 1. Stable bony destructive changes involving the mandible. 2. No change in appearance of the maxilla. RADIATION DOSE DELIVERED: 594.63mGy.cm Total DLP 594.63mGy.cm Total DLP DATA REPOSITORY: All CT scans at this facility are submitted to the National Radiology Data Registry (NRDR) Dose Index Registry (DIR) with the [employer] ([employer]). RADIATION OPTIMIZATION: All CT scans at this facility use at least one of these dose optimization te chniques: automated exposure control; mA and/or kV adjustment per patient size (includes targeted exa ms where dose is matched to clinical indication); or iterative reconstruction.
--- NOTE | 2022-10-19 22:00 | DI.VRAD_ITS ---
PROCEDURE INFORMATION: Exam: CT Maxillofacial Without Contrast; Mandible Exam date and time: 10/19/2022 1:27 PM Age: 67 years old Clinical indication: Jaw pain; Drug-induced osteonecrosis of jaw TECHNIQUE: Imaging protocol: Computed tomography maxillofacial without contrast. Exam focused on the mandible. Radiation optimization: All CT scans at this facility use at least one of these dose optimization techniques: automated exposure control; mA and/or kV adjustment per patient size (includes targeted exams where dose is matched to clinical indication); or iterative reconstruction. COMPARISON: No relevant prior studies available. FINDINGS: Bones/joints: Bony destruction of portions of the anterior / each anterolateral aspect of the mandible. Paranasal sinuses: Normal. No air-fluid levels. Soft tissues: No discrete soft tissue. Dental: Patient is edentulous (except for a single tooth within the posterior left maxilla). IMPRESSION: 1. Bony destruction of portions of the anterior / each anterolateral aspect of the mandible. 2. Patient is edentulous. 3. No discrete soft tissue abscess. Dictated and Authenticated by: Ba Lawler MD. Ordering:ANA MENDOZA MD
== END 2022-10-19 01:13 ==
LOC: DI 00:54
PROVIDERS: PCP Internal Medicine; Visit Provider Dentist
DX: M87.180 Osteonecrosis due to drugs, jaw (principal)
CPT/HCPCS: 70486

== ENCOUNTER 2022-11-02 04:26 | Outpatient (CLI) | payer MEDICARE, BC, SELFPAY ==
[2022-11-02 09:38] LABS: Abs Immature Grans 0.03 10^3/uL (0.0-0.06); Absolute Basophil Count 0.03 10^3/uL (0.0-0.2); Absolute Eosinophil Count 0.13 10^3/uL (0.0-0.7); Absolute Lymphocyte Count 0.21 10^3/uL (1.2-3.4); Absolute Monocyte Count 1.87 10^3/uL (0.1-0.8); Absolute Neutrophil Count 3.77 10^3/uL (1.2-6.7); Basophils % 0.5; Eosinophils % 2.2; HCT 34.9 % (40.0-50.0); Immature Grans % 0.5; Lymphocytes % 3.5; MCH 31.9 pg (27.0-33.0); MCHC 31.5 % (32.0-36.0); MCV 101 fL (80-95); MPV 8.8 fL (8.0-11.0); Neutrophils % 62.3; Platelet Count 241 10^3/uL (130-400); RBC 3.45 10^6/uL (4.36-5.78); RDW 14.5 % (11.8-14.1); RDW-SD 53.3 fL; WBC 6.04 10^3/uL (4.4-10.8)
[2022-11-02 10:01] LABS: Diff Comment Agrees w/ Instrument
[2022-11-02 10:02] LABS: RBC Morphology Normal
[2022-11-02 10:28] LABS: ALT 26 U/L (16-63); AST 14 U/L (15-37); Albumin 3.5 g/dL (3.4-5.0); Alkaline Phosphatase 85 U/L (46-116); Anion Gap 8.6 mmol/L (3-11); BUN 26 mg/dL (7-18); Bilirubin, Total 0.8 mg/dL (0.2-1.0); CO2 30.4 mmol/L (21.0-32.0); CREATININE 0.9 mg/dL (0.70-1.30); Calcium 9.6 mg/dL (8.5-10.1); Chloride 103 mmol/L (98-107); Estimated GFR 92.45 (mL/min/1.73m2); Glucose 117 mg/dL (74-106); Potassium 3.9 mmol/L (3.5-5.1); Sodium 142 mmol/L (136-145); Total Protein 6.7 g/dL (6.4-8.2)
[2022-11-03 10:23] LABS: IgA 23 mg/dL (85-499); IgG 255 mg/dL (610-1616); IgM <12 mg/dL (35-242); Kappa Free Light Chain 1.08 mg/dL (0.33-1.94); Lambda Free Light Chain <0.44 mg/dL (0.57-2.63)
[2022-11-11 08:59] LABS: Albumin 60.2 % (55.8-66.1); Albumin g/dL 3.5 g/dL (3.6-5.2); Comment (See Note); Total Protein 5.8 g/dL (6.3-8.2)
== END 2022-11-02 04:27 | disposition home or self-care (01) ==
PROVIDERS: PCP Internal Medicine; Visit Provider Nurse Practitioner Adult Health
DX: C90.02 Multiple myeloma in relapse (principal)
CPT/HCPCS: 36415; 80053; 82784; 83883; 84165; 85025

== ENCOUNTER 2022-11-30 02:41 | Outpatient (CLI) | payer MEDICARE, BC, SELFPAY ==
[2022-11-30 10:26] LABS: Abs Immature Grans 0.02 10^3/uL (0.0-0.06); Absolute Basophil Count 0.01 10^3/uL (0.0-0.2); Absolute Eosinophil Count 0.06 10^3/uL (0.0-0.7); Absolute Lymphocyte Count 0.79 10^3/uL (1.2-3.4); Absolute Monocyte Count 0.69 10^3/uL (0.1-0.8); Absolute Neutrophil Count 2.66 10^3/uL (1.2-6.7); Basophils % 0.2; Eosinophils % 1.4; HCT 37.7 % (40.0-50.0); HGB 11.7 g/dL (13.5-17.5); Immature Grans % 0.5; Lymphocytes % 18.7; MCH 31.9 pg (27.0-33.0); MCV 103 fL (80-95); MPV 9.3 fL (8.0-11.0); Monocytes % 16.3; Neutrophils % 62.9; Platelet Count 168 10^3/uL (130-400); RBC 3.67 10^6/uL (4.36-5.78); RDW 14.2 % (11.8-14.1); RDW-SD 54.7 fL; WBC 4.23 10^3/uL (4.4-10.8)
[2022-11-30 10:53] LABS: ALT 14 U/L (16-63); AST 11 U/L (15-37); Albumin 3.7 g/dL (3.4-5.0); Alkaline Phosphatase 67 U/L (46-116); Anion Gap 6.4 mmol/L (3-11); BUN 29 mg/dL (7-18); Bilirubin, Total 0.6 mg/dL (0.2-1.0); CO2 32.6 mmol/L (21.0-32.0); CREATININE 0.9 mg/dL (0.70-1.30); Calcium 9.4 mg/dL (8.5-10.1); Chloride 102 mmol/L (98-107); Estimated GFR 92.45 (mL/min/1.73m2); Glucose 97 mg/dL (74-106); Potassium 4.1 mmol/L (3.5-5.1); Sodium 141 mmol/L (136-145); Total Protein 6.4 g/dL (6.4-8.2)
[2022-12-01 09:29] LABS: IgA 21 mg/dL (85-499); IgG 413 mg/dL (610-1616); IgM 15 mg/dL (35-242); Kappa Free Light Chain 2.22 mg/dL (0.33-1.94); Lambda Free Light Chain <0.44 mg/dL (0.57-2.63)
[2022-12-01 15:21] LABS: Albumin 66.3 % (55.8-66.1); Comment (See Note)
[2022-12-01 15:26] LABS: Immunotyping, Serum (See Note)
== END 2022-11-30 02:42 | disposition home or self-care (01) ==
PROVIDERS: PCP Internal Medicine; Visit Provider Nurse Practitioner Adult Health
DX: C90.02 Multiple myeloma in relapse (principal)
CPT/HCPCS: 36415; 80053; 82784; 83883; 84165; 85025; 86320

== ENCOUNTER 2022-12-28 03:38 | Outpatient (CLI) | payer MEDICARE, BC, SELFPAY ==
[2022-12-28 08:21] LABS: Abs Immature Grans 0.01 10^3/uL (0.0-0.06); Absolute Basophil Count 0.01 10^3/uL (0.0-0.2); Absolute Eosinophil Count 0.01 10^3/uL (0.0-0.7); Absolute Lymphocyte Count 0.97 10^3/uL (1.2-3.4); Absolute Monocyte Count 0.64 10^3/uL (0.1-0.8); Basophils % 0.3; Eosinophils % 0.3; HCT 37.2 % (40.0-50.0); HGB 11.9 g/dL (13.5-17.5); Immature Grans % 0.3; Lymphocytes % 24.6; MCH 31.7 pg (27.0-33.0); MCV 99 fL (80-95); MPV 9.3 fL (8.0-11.0); Monocytes % 16.2; Neutrophils % 58.3; Platelet Count 162 10^3/uL (130-400); RBC 3.75 10^6/uL (4.36-5.78); RDW 13.5 % (11.8-14.1); RDW-SD 49.1 fL; WBC 3.94 10^3/uL (4.4-10.8)
[2022-12-28 08:46] LABS: ALT 12 U/L (16-63); AST 12 U/L (15-37); Albumin 3.6 g/dL (3.4-5.0); Alkaline Phosphatase 64 U/L (46-116); Anion Gap 5.2 mmol/L (3-11); BUN 22 mg/dL (7-18); Bilirubin, Total 0.3 mg/dL (0.2-1.0); CO2 31.8 mmol/L (21.0-32.0); Calcium 9.2 mg/dL (8.5-10.1); Chloride 106 mmol/L (98-107); Estimated GFR 81.47 (mL/min/1.73m2); Glucose 136 mg/dL (74-106); Potassium 3.8 mmol/L (3.5-5.1); Sodium 143 mmol/L (136-145); Total Protein 6.2 g/dL (6.4-8.2)
[2022-12-29 10:26] LABS: IgA <13 mg/dL (85-499); IgG 625 mg/dL (610-1616); IgM 13 mg/dL (35-242); Kappa Free Light Chain 2.75 mg/dL (0.33-1.94); Lambda Free Light Chain <0.44 mg/dL (0.57-2.63)
[2022-12-29 13:37] LABS: Albumin 65.4 % (55.8-66.1); Total Protein 6.1 g/dL (6.3-8.2)
== END 2022-12-28 03:39 | disposition home or self-care (01) ==
PROVIDERS: PCP Internal Medicine; Visit Provider Nurse Practitioner Adult Health
DX: C90.02 Multiple myeloma in relapse (principal)
CPT/HCPCS: 36415; 80053; 82784; 83883; 84165; 85025

== ENCOUNTER 2023-01-25 04:09 | Outpatient (CLI) | payer MEDICARE, BC, SELFPAY ==
[2023-01-25 10:05] LABS: Abs Immature Grans 0.01 10^3/uL (0.0-0.06); Absolute Basophil Count 0.04 10^3/uL (0.0-0.2); Absolute Eosinophil Count 0.01 10^3/uL (0.0-0.7); Absolute Lymphocyte Count 0.55 10^3/uL (1.2-3.4); Absolute Monocyte Count 1.29 10^3/uL (0.1-0.8); Absolute Neutrophil Count 1.51 10^3/uL (1.2-6.7); Basophils % 1.2; Eosinophils % 0.3; HCT 38.7 % (40.0-50.0); HGB 12.3 g/dL (13.5-17.5); Immature Grans % 0.3; Lymphocytes % 16.1; MCH 30.6 pg (27.0-33.0); MCHC 31.8 % (32.0-36.0); MCV 96 fL (80-95); MPV 8.8 fL (8.0-11.0); Monocytes % 37.8; Neutrophils % 44.3; Platelet Count 263 10^3/uL (130-400); RBC 4.02 10^6/uL (4.36-5.78); WBC 3.41 10^3/uL (4.4-10.8)
[2023-01-25 10:21] LABS: ALT 16 U/L (16-63); AST 10 U/L (15-37); Albumin 3.7 g/dL (3.4-5.0); Alkaline Phosphatase 75 U/L (46-116); Anion Gap 7.7 mmol/L (3-11); BUN 27 mg/dL (7-18); Bilirubin, Total 0.5 mg/dL (0.2-1.0); CO2 29.3 mmol/L (21.0-32.0); CREATININE 0.9 mg/dL (0.70-1.30); Calcium 9.9 mg/dL (8.5-10.1); Chloride 104 mmol/L (98-107); Estimated GFR 92.45 (mL/min/1.73m2); Glucose 107 mg/dL (74-106); Potassium 3.9 mmol/L (3.5-5.1); Sodium 141 mmol/L (136-145)
[2023-01-26 10:33] LABS: IgA <13 mg/dL (85-499); IgG 458 mg/dL (610-1616); IgM <12 mg/dL (35-242); Kappa Free Light Chain 1.85 mg/dL (0.33-1.94); Lambda Free Light Chain <0.44 mg/dL (0.57-2.63)
[2023-01-26 13:38] LABS: Albumin 60.7 % (55.8-66.1); Albumin g/dL 3.9 g/dL (3.6-5.2); Total Protein 6.4 g/dL (6.3-8.2)
== END 2023-01-25 04:10 | disposition home or self-care (01) ==
PROVIDERS: Referring Provider Nurse Practitioner Adult Health; Visit Provider Nurse Practitioner Adult Health
DX: C90.02 Multiple myeloma in relapse (principal)
CPT/HCPCS: 36415; 80053; 82784; 83883; 84165; 85025

== ENCOUNTER 2023-02-22 03:40 | Outpatient (CLI) | payer MEDICARE, BC, SELFPAY ==
[2023-02-22 08:24] LABS: Absolute Basophil Count 0.03 10^3/uL (0.0-0.2); Absolute Eosinophil Count 0.03 10^3/uL (0.0-0.7); Absolute Lymphocyte Count 0.37 10^3/uL (1.2-3.4); Absolute Monocyte Count 1.29 10^3/uL (0.1-0.8); Absolute Neutrophil Count 1.04 10^3/uL (1.2-6.7); Basophils % 1.1; Eosinophils % 1.1; HCT 33.7 % (40.0-50.0); HGB 10.7 g/dL (13.5-17.5); Lymphocytes % 13.4; MCH 30.8 pg (27.0-33.0); MCHC 31.8 % (32.0-36.0); MCV 97 fL (80-95); MPV 8.9 fL (8.0-11.0); Monocytes % 46.7; Neutrophils % 37.7; Platelet Count 214 10^3/uL (130-400); RBC 3.47 10^6/uL (4.36-5.78); RDW 15.6 % (11.8-14.1); RDW-SD 54.7 fL; WBC 2.76 10^3/uL (4.4-10.8)
[2023-02-22 08:37] LABS: ALT 11 U/L (16-63); AST 5 U/L (15-37); Albumin 3.2 g/dL (3.4-5.0); Alkaline Phosphatase 66 U/L (46-116); Anion Gap 6.1 mmol/L (3-11); BUN 20 mg/dL (7-18); Bilirubin, Total 0.5 mg/dL (0.2-1.0); CO2 28.9 mmol/L (21.0-32.0); CREATININE 0.8 mg/dL (0.70-1.30); Calcium 9.6 mg/dL (8.5-10.1); Chloride 104 mmol/L (98-107); Glucose 96 mg/dL (74-106); Potassium 3.8 mmol/L (3.5-5.1); Sodium 139 mmol/L (136-145); Total Protein 6.3 g/dL (6.4-8.2)
[2023-02-23 09:45] LABS: IgA <13 mg/dL (85-499); IgG 332 mg/dL (610-1616); IgM <12 mg/dL (35-242); Kappa Free Light Chain 1.81 mg/dL (0.33-1.94); Lambda Free Light Chain <0.44 mg/dL (0.57-2.63)
[2023-02-23 17:15] LABS: Albumin 60.2 % (55.8-66.1); Albumin g/dL 3.4 g/dL (3.6-5.2); Total Protein 5.6 g/dL (6.3-8.2)
== END 2023-02-22 03:41 | disposition home or self-care (01) ==
PROVIDERS: Internal Medicine Hematology & Oncology; Visit Provider Nurse Practitioner Adult Health
DX: C90.02 Multiple myeloma in relapse (principal)
CPT/HCPCS: 36415; 80053; 82784; 83883; 84165; 85025

== ENCOUNTER 2023-03-22 03:51 | Outpatient (CLI) | payer MEDICARE, BC, SELFPAY ==
[2023-03-22 09:54] LABS: Abs Immature Grans 0.01 10^3/uL (0.0-0.06); Absolute Basophil Count 0.02 10^3/uL (0.0-0.2); Absolute Eosinophil Count 0.01 10^3/uL (0.0-0.7); Absolute Lymphocyte Count 0.36 10^3/uL (1.2-3.4); Absolute Monocyte Count 0.99 10^3/uL (0.1-0.8); Absolute Neutrophil Count 2.41 10^3/uL (1.2-6.7); Basophils % 0.5; Eosinophils % 0.3; HCT 31.4 % (40.0-50.0); HGB 9.8 g/dL (13.5-17.5); Immature Grans % 0.3; Lymphocytes % 9.5; MCH 31.7 pg (27.0-33.0); MCHC 31.2 % (32.0-36.0); MCV 102 fL (80-95); MPV 8.9 fL (8.0-11.0); Monocytes % 26.1; Neutrophils % 63.3; Platelet Count 284 10^3/uL (130-400); RBC 3.09 10^6/uL (4.36-5.78); RDW 17.3 % (11.8-14.1); RDW-SD 64.7 fL
[2023-03-22 10:13] LABS: ALT 15 U/L (16-63); AST 8 U/L (15-37); Albumin 3.3 g/dL (3.4-5.0); Alkaline Phosphatase 67 U/L (46-116); Anion Gap 4.7 mmol/L (3-11); BUN 16 mg/dL (7-18); Bilirubin, Total 0.6 mg/dL (0.2-1.0); CO2 30.3 mmol/L (21.0-32.0); CREATININE 0.8 mg/dL (0.70-1.30); Calcium 9.4 mg/dL (8.5-10.1); Chloride 105 mmol/L (98-107); Glucose 91 mg/dL (74-106); Sodium 140 mmol/L (136-145); Total Protein 6.4 g/dL (6.4-8.2)
[2023-03-22 14:42] LABS: Reticulocyte 3.4 % (0.5-2.4)
[2023-03-22 14:50] LABS: Iron 44 ug/dL (65-175); Total Iron Binding Capacity 255 ug/dL (250-450); Transferrin Sat 17 % (20-55)
[2023-03-22 15:19] LABS: Ferritin 128 ng/mL (26-388); Folate 16.8 ng/mL (8.6-20.0); TSH 2.17 uIU/mL (0.36-3.74); Vitamin B12 837 pg/mL (193-986)
[2023-03-23 10:29] LABS: Haptoglobin 209 mg/dL (32-197); IgA 22 mg/dL (85-499); IgG 283 mg/dL (610-1616); IgM <12 mg/dL (35-242); Kappa Free Light Chain 2.52 mg/dL (0.33-1.94); Lambda Free Light Chain <0.44 mg/dL (0.57-2.63)
[2023-03-23 13:54] LABS: Albumin 61.8 % (55.8-66.1); Albumin g/dL 3.5 g/dL (3.6-5.2); Total Protein 5.6 g/dL (6.3-8.2)
== END 2023-03-22 03:52 | disposition home or self-care (01) ==
LOC: LBO 03:52
PROVIDERS: Visit Provider Nurse Practitioner Adult Health
DX: C90.02 Multiple myeloma in relapse (principal)
CPT/HCPCS: 36415; 80053; 82784; 82607; 82728; 82746; 83010; 83540; 83550; 83883; 84165; 84443; 85025; 85045

== ENCOUNTER 2023-04-19 02:05 | Outpatient (CLI) | payer MEDICARE, BC, SELFPAY ==
[2023-04-19 09:59] LABS: Abs Immature Grans 0.01 10^3/uL (0.0-0.06); Absolute Basophil Count 0.03 10^3/uL (0.0-0.2); Absolute Eosinophil Count 0.02 10^3/uL (0.0-0.7); Absolute Lymphocyte Count 0.36 10^3/uL (1.2-3.4); Absolute Neutrophil Count 1.13 10^3/uL (1.2-6.7); Basophils % 1.2; Eosinophils % 0.8; HCT 32.5 % (40.0-50.0); HGB 10.2 g/dL (13.5-17.5); Immature Grans % 0.4; Lymphocytes % 14.7; MCH 32.6 pg (27.0-33.0); MCHC 31.4 % (32.0-36.0); MCV 104 fL (80-95); MPV 9.5 fL (8.0-11.0); Monocytes % 36.7; Neutrophils % 46.2; Platelet Count 216 10^3/uL (130-400); RBC 3.13 10^6/uL (4.36-5.78); RDW 16.5 % (11.8-14.1); RDW-SD 62.9 fL; WBC 2.45 10^3/uL (4.4-10.8)
[2023-04-19 10:16] LABS: ALT 13 U/L (16-63); AST 9 U/L (15-37); Albumin 3.5 g/dL (3.4-5.0); Alkaline Phosphatase 57 U/L (46-116); Anion Gap 5.3 mmol/L (3-11); BUN 22 mg/dL (7-18); Bilirubin, Total 0.4 mg/dL (0.2-1.0); CO2 30.7 mmol/L (21.0-32.0); CREATININE 0.7 mg/dL (0.70-1.30); Calcium 9.4 mg/dL (8.5-10.1); Chloride 104 mmol/L (98-107); Estimated GFR 99.74 (mL/min/1.73m2); Glucose 88 mg/dL (74-106); Sodium 140 mmol/L (136-145); Total Protein 6.3 g/dL (6.4-8.2)
[2023-04-20 10:04] LABS: IgA <13 mg/dL (85-499); IgG 259 mg/dL (610-1616); IgM <12 mg/dL (35-242); Kappa Free Light Chain 4.08 mg/dL (0.33-1.94); Lambda Free Light Chain <0.44 mg/dL (0.57-2.63)
[2023-04-20 14:09] LABS: Albumin 65.7 % (55.8-66.1); Albumin g/dL 3.7 g/dL (3.6-5.2); Total Protein 5.7 g/dL (6.3-8.2)
== END 2023-04-19 02:06 | disposition home or self-care (01) ==
LOC: LBO 02:05
PROVIDERS: Visit Provider Nurse Practitioner Adult Health
DX: C90.02 Multiple myeloma in relapse (principal)
CPT/HCPCS: 36415; 80053; 82784; 83883; 84165; 85025

== ENCOUNTER 2023-06-21 02:35 | Outpatient (CLI) | payer MEDICARE, SELFPAY ==
[2023-06-21 09:34] LABS: Abs Immature Grans 0.01 10^3/uL (0.0-0.06); Absolute Basophil Count 0.03 10^3/uL (0.0-0.2); Absolute Eosinophil Count 0.02 10^3/uL (0.0-0.7); Absolute Lymphocyte Count 0.55 10^3/uL (1.2-3.4); Absolute Neutrophil Count 1.66 10^3/uL (1.2-6.7); Basophils % 0.8; Eosinophils % 0.6; HCT 31.9 % (40.0-50.0); HGB 9.7 g/dL (13.5-17.5); Immature Grans % 0.3; Lymphocytes % 15.4; MCH 31.7 pg (27.0-33.0); MCHC 30.4 % (32.0-36.0); MCV 104 fL (80-95); MPV 9.1 fL (8.0-11.0); Monocytes % 36.4; Neutrophils % 46.5; Platelet Count 173 10^3/uL (130-400); RBC 3.06 10^6/uL (4.36-5.78); RDW 16.9 % (11.8-14.1); RDW-SD 65.2 fL; WBC 3.57 10^3/uL (4.4-10.8)
[2023-06-21 09:51] LABS: ALT 13 U/L (16-63); AST 11 U/L (15-37); Albumin 3.5 g/dL (3.4-5.0); Alkaline Phosphatase 53 U/L (46-116); Anion Gap 4.1 mmol/L (3-11); BUN 27 mg/dL (7-18); Bilirubin, Total 0.5 mg/dL (0.2-1.0); CO2 31.9 mmol/L (21.0-32.0); CREATININE 0.9 mg/dL (0.70-1.30); Chloride 105 mmol/L (98-107); Estimated GFR 91.88 (mL/min/1.73m2); Glucose 88 mg/dL (74-106); Potassium 3.7 mmol/L (3.5-5.1); Sodium 141 mmol/L (136-145); Total Protein 5.9 g/dL (6.4-8.2)
[2023-06-22 10:10] LABS: IgA <13 mg/dL (85-499); IgG 266 mg/dL (610-1616); IgM <12 mg/dL (35-242); Kappa Free Light Chain 13.19 mg/dL (0.33-1.94); Lambda Free Light Chain <0.44 mg/dL (0.57-2.63)
[2023-06-22 13:33] LABS: Albumin 68.1 % (55.8-66.1); Albumin g/dL 3.8 g/dL (3.6-5.2); Total Protein 5.6 g/dL (6.3-8.2)
== END 2023-06-21 02:36 | disposition home or self-care (01) ==
PROVIDERS: Internal Medicine Hematology & Oncology; Visit Provider Nurse Practitioner Adult Health
DX: C90.02 Multiple myeloma in relapse (principal)
CPT/HCPCS: 36415; 80053; 82784; 83883; 84165; 85025

== ENCOUNTER 2023-07-12 02:32 | Outpatient (CLI) | payer MEDICARE, SELFPAY ==
[2023-07-12 12:40] LABS: Abs Immature Grans 0.02 10^3/uL (0.0-0.06); Absolute Basophil Count 0.01 10^3/uL (0.0-0.2); Absolute Eosinophil Count 0.01 10^3/uL (0.0-0.7); Absolute Lymphocyte Count 0.28 10^3/uL (1.2-3.4); Absolute Monocyte Count 1.35 10^3/uL (0.1-0.8); Absolute Neutrophil Count 0.93 10^3/uL (1.2-6.7); Basophils % 0.4; Eosinophils % 0.4; HCT 33.9 % (40.0-50.0); HGB 10.6 g/dL (13.5-17.5); Immature Grans % 0.8; Lymphocytes % 10.8; MCH 31.6 pg (27.0-33.0); MCHC 31.3 % (32.0-36.0); MCV 101 fL (80-95); MPV 10.8 fL (8.0-11.0); Monocytes % 51.9; Neutrophils % 35.7; RBC 3.35 10^6/uL (4.36-5.78); RDW 15.8 % (11.8-14.1); RDW-SD 58.8 fL
[2023-07-12 13:09] LABS: Diff Comment Diff Reviewed; Platelet Count 74 10^3/uL (130-400); RBC Morphology Normal
[2023-07-12 13:23] LABS: ALT 17 U/L (16-63); AST 8 U/L (15-37); Albumin 3.6 g/dL (3.4-5.0); Alkaline Phosphatase 57 U/L (46-116); Anion Gap 7.8 mmol/L (3-11); BUN 28 mg/dL (7-18); CO2 30.2 mmol/L (21.0-32.0); CREATININE 0.8 mg/dL (0.70-1.30); Calcium 9.3 mg/dL (8.5-10.1); Chloride 104 mmol/L (98-107); Estimated GFR 95.21 (mL/min/1.73m2); Glucose 87 mg/dL (74-106); Potassium 3.7 mmol/L (3.5-5.1); Sodium 142 mmol/L (136-145); Total Protein 6.3 g/dL (6.4-8.2)
[2023-07-14 17:34] LABS: IgA <13 mg/dL (85-499); IgG 274 mg/dL (610-1616); IgM <12 mg/dL (35-242); Lambda Free Light Chain <0.44 mg/dL (0.57-2.63)
[2023-07-14 17:35] LABS: Albumin 65.5 % (55.8-66.1); Albumin g/dL 3.8 g/dL (3.6-5.2); Comment (See Note); Total Protein 5.8 g/dL (6.3-8.2)
[2023-07-16 12:59] LABS: Immunotyping, Serum (See Note)
== END 2023-07-12 02:33 | disposition home or self-care (01) ==
PROVIDERS: Visit Provider Nurse Practitioner Adult Health
DX: C90.02 Multiple myeloma in relapse (principal)
CPT/HCPCS: 36415; 80053; 82784; 83883; 84165; 85025; 86320

== ENCOUNTER 2023-07-26 01:33 | Outpatient (CLI) | payer MEDICARE, SELFPAY ==
[2023-07-26 11:53] LABS: Abs Immature Grans 0.01 10^3/uL (0.0-0.06); Absolute Basophil Count 0.05 10^3/uL (0.0-0.2); Absolute Eosinophil Count 0.01 10^3/uL (0.0-0.7); Absolute Lymphocyte Count 0.43 10^3/uL (1.2-3.4); Basophils % 1.6; Eosinophils % 0.3; HCT 33.2 % (40.0-50.0); HGB 10.4 g/dL (13.5-17.5); Immature Grans % 0.3; Lymphocytes % 13.4; MCH 32.6 pg (27.0-33.0); MCHC 31.3 % (32.0-36.0); MCV 104 fL (80-95); MPV 9.6 fL (8.0-11.0); Monocytes % 15.6; Neutrophils % 68.8; Platelet Count 227 10^3/uL (130-400); RBC 3.19 10^6/uL (4.36-5.78); RDW 15.7 % (11.8-14.1); RDW-SD 61.1 fL
[2023-07-26 12:08] LABS: ALT 13 U/L (16-63); AST 11 U/L (15-37); Albumin 3.5 g/dL (3.4-5.0); Alkaline Phosphatase 73 U/L (46-116); Anion Gap 5.5 mmol/L (3-11); BUN 25 mg/dL (7-18); Bilirubin, Total 0.4 mg/dL (0.2-1.0); CO2 32.5 mmol/L (21.0-32.0); CREATININE 0.9 mg/dL (0.70-1.30); Calcium 9.3 mg/dL (8.5-10.1); Chloride 104 mmol/L (98-107); Estimated GFR 91.88 (mL/min/1.73m2); Glucose 83 mg/dL (74-106); Potassium 4.1 mmol/L (3.5-5.1); Sodium 142 mmol/L (136-145); Total Protein 6.1 g/dL (6.4-8.2)
[2023-07-27 10:15] LABS: IgA <13 mg/dL (85-499); IgG 246 mg/dL (610-1616); IgM <12 mg/dL (35-242); Kappa Free Light Chain 25.21 mg/dL (0.33-1.94); Lambda Free Light Chain <0.44 mg/dL (0.57-2.63)
[2023-07-27 15:11] LABS: Albumin 65.7 % (55.8-66.1); Albumin g/dL 3.8 g/dL (3.6-5.2); Comment (See Note); Total Protein 5.8 g/dL (6.3-8.2)
== END 2023-07-26 01:34 | disposition home or self-care (01) ==
PROVIDERS: Visit Provider Nurse Practitioner Adult Health
DX: C90.02 Multiple myeloma in relapse (principal)
CPT/HCPCS: 36415; 80053; 82784; 83883; 84165; 85025